=== PATIENT | female | born 2000 | race Caucasian/White ===

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

== ENCOUNTER 2020-04-28 14:58 | Observation (INO) ==
--- NOTE | 2020-04-28 15:32 | Emergency Department Note ---
History of Present Illness General Chief complaint: Mental Health Evaluation Stated complaint: OVERDOSE Time Seen by Provider: 04/28/20 15:20 Source: patient Mode of arrival: ambulatory Limitations: no limitations History of Present Illness Maximum Pain Intensity: 0 This patient comes in after taking an overdose. She says she did it because she did not want a live she admits to wanting to hurt herself and says this was a suicidal ideation. She does have a history of depression and overdose in the past. She said that she took 6 ibuprofen about 16 Effexor about 30 minutes prior to her be evaluating her. She did not take any aspirin or acetaminophen. Denies drugs and alcohol. She did not vomit. She has been feeling tired and has a minimal headache. Mild nausea but no chest pain or shortness of breath no known Covid exposure infectious had Covid already she tells me. She has had no particular stress. Home Medications Medication Instructions Recorded Confirmed Type norgestimate-ethinyl estradiol 1 tab PO DAILY 03/12/20 04/28/20 History [Previfem] venlafaxine 75 mg PO DAILY 03/12/20 04/28/20 History Allergies Allergy/AdvReac Type Severity Reaction Status Date / Time No Known Allergies Allergy Verified 04/28/20 18:15 Past Med/Surg History Medical History Depression Surgical History No pertinent past surgical history Family History (Updated 04/28/20 @ 18:36 by CESAR Lyons) Denies family history of Heart disease Social History Smoking Status: Never smoker Hx Alcohol Use: Yes Alcohol type: beer Hx Substance Use: No Preferred Language: Romanian Communication Ability: Effective 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 Review of Systems A total of 10 systems reviewed and were otherwise negative Physical Exam Vital Signs Vital Signs - 24 hr 04/28/20 15:12 04/28/20 15:48 04/28/20 16:03 Temperature 36.6 C Temperature Source Oral Pulse Rate 84 94 H 75 Respiratory Rate 16 16 16 Respiratory Effort / Characteristics Non-Labored Respiratory Depth Normal Blood Pressure 149/71 H 133/81 124/67 Blood Pressure Mean 97 86 86 Pulse Oximetry 98 96 95 Oxygen Delivery Method Sepsis Recent Fever Within 48 Hours No Sepsis New/Unexplained Change in Mental Status No Sepsis Action Taken by Nursing No Action Required 04/28/20 16:30 04/28/20 17:00 04/28/20 17:30 Temperature Temperature Source Pulse Rate 74 88 84 Respiratory Rate 23 20 20 Respiratory Effort / Characteristics Respiratory Depth Blood Pressure 115/72 130/82 124/73 Blood Pressure Mean 80 89 88 Pulse Oximetry 96 98 96 Oxygen Delivery Method Sepsis Recent Fever Within 48 Hours Sepsis New/Unexplained Change in Mental Status Sepsis Action Taken by Nursing 04/28/20 18:22 04/28/20 18:30 04/28/20 18:34 Temperature Temperature Source Pulse Rate 75 87 Respiratory Rate 19 20 Respiratory Effort / Characteristics Respiratory Depth Blood Pressure 112/58 L 113/65 Blood Pressure Mean 65 77 Pulse Oximetry 98 98 Oxygen Delivery Method Room Air Sepsis Recent Fever Within 48 Hours Sepsis New/Unexplained Change in Mental Status Sepsis Action Taken by Nursing General: Well developed well nourished young female who appears in no acute distress, breathing comfortably on room air. Normal speech HEENT: Normal cephalic atraumatic. Pupils are equal round and reactive to light. Extraocular movements are intact. Oropharynx is pink with moist mucous membranes. No swelling of the mouth lips or tongue. Neck: Supple with a midline trachea. No meningeal signs or stiffness, no JVD or bruits. No Stridor. Chest: Clear to auscultation bilaterally. No wheezes or rhonchi. No increased work of breathing. Heart: Regular rate and rhythm without murmurs or gallops. Abdomen: Soft nontender, nondistended without rebound guarding or rigidity. Extremities: No cyanosis clubbing or edema. No calf tenderness or assymetry Spine/Back. Non tender to palpation. No CVA tenderness Skin: Good turgor without rashes. Neurologic exam: Cranial nerves two through 12 are intact. Motor and sensation are intact and symmetrical throughout. Course Administered Medications Discontinued Medications Metoclopramide HCl (Metoclopramide Hcl Inj 5 Mg/Ml 2 Ml Vial) 10 mg IV NOW ONE Stop: 04/28/20 16:31 Last Admin: 04/28/20 16:32 Dose: 10 mg Documented by: [id number] Medical Decision Making Differential Diagnosis Overdose, arrhythmia, seizure, suicidal ideation, depression, electrolyte or metabolic abnormality, tox Medical Records Attestation: I reviewed the patient's medical records. Home Medications Current Medication List: was personally reviewed by me Laboratory Data Result diagrams: 04/28/20 15:48 04/28/20 15:48 Lab Results 04/28/20 04/28/20 04/28/20 Range/Units 15:48 15:48 15:48 WBC 9.58 (4.8-10.8) K/uL RBC 4.18 L (4.2-5.4) M/uL Hgb 12.8 (12.0-16.0) g/dL Hct 37.9 (37-47) % MCV 90.7 (80-100) fL MCH 30.6 (25-34) pg MCHC 33.8 (32-36) g/dL RDW Std Deviation 43.7 (36.4-46.3) fL RDW Coeff of Shailesh 13.2 (11.5-14.5) % Plt Count 301 (130-400) K/uL MPV 9.4 (7.4-10.4) fL Immature Gran % (Auto) 0.1 % Neut % (Auto) 74.0 % Lymph % (Auto) 18.9 % Winkler % (Auto) 5.0 % Eos % (Auto) 1.7 % Baso % (Auto) 0.3 % Neut # (Auto) 7.09 H (1.4-6.5) K/uL Lymph # (Auto) 1.81 (1.2-3.4) K/uL Winkler # (Auto) 0.48 (0.11-0.59) K/uL Eos # (Auto) 0.16 (0-0.5) K/uL Baso # (Auto) 0.03 (0-0.2) K/uL Immature Gran # (Auto) 0.01 (0.00-0.02) K/uL Sodium 141 (136-145) mmol/L Potassium 3.9 (3.5-5.1) mmol/L Chloride 110 H (98-107) mmol/L Carbon Dioxide 25 (21-32) mmol/L Anion Gap 6.0 (3-11) BUN 8 (7-18) mg/dl Creatinine 0.76 (0.6-1.2) mg/dl Est Cr Clr Drug Dosing 151.5 ml/min Est GFR ( Amer) 130.9 Est GFR (Non-Af Amer) 112.9 BUN/Creatinine Ratio 10.6 (10-20) Glucose 90 (70-99) mg/dl Calcium 9.0 (8.5-10.1) mg/dl Total Bilirubin 0.4 (0.2-1) mg/dl AST 13 L (15-37) U/L ALT 14 (12-78) U/L Alkaline Phosphatase 48 (45-117) U/L Total Protein 7.2 (6.4-8.2) gm/dl Albumin 3.5 (3.4-5.0) gm/dl Globulin 3.7 (2.5-4.0) gm/dl Albumin/Globulin Ratio 0.9 (0.9-2) HCG, Qual (Negative) Urine Color Urine Appearance (Clear) Urine pH (4.5-7.5) Ur Specific [employer] (1.000-1.030) Urine Protein (Negative) Urine Glucose (UA) (Negative) Urine Ketones (Negative) Urine Blood (Negative) Urine Nitrite (Negative) Urine Bilirubin (Negative) Urine Urobilinogen (Negative) Ur Leukocyte Esterase (Negative) Salicylates < 1.7 L (2.8-20) mg/dl Acetaminophen < 2 L (10-30) ug/ml Ethyl Alcohol mg/dL (0-3) mg/dl SARS-CoV-2 Ag (Rapid) (Negative) 04/28/20 04/28/20 04/28/20 Range/Units 15:48 15:48 18:02 WBC (4.8-10.8) K/uL RBC (4.2-5.4) M/uL Hgb (12.0-16.0) g/dL Hct (37-47) % MCV (80-100) fL MCH (25-34) pg MCHC (32-36) g/dL RDW Std Deviation (36.4-46.3) fL RDW Coeff of Shailesh (11.5-14.5) % Plt Count (130-400) K/uL MPV (7.4-10.4) fL Immature Gran % (Auto) % Neut % (Auto) % Lymph % (Auto) % Winkler % (Auto) % Eos % (Auto) % Baso % (Auto) % Neut # (Auto) (1.4-6.5) K/uL Lymph # (Auto) (1.2-3.4) K/uL Winkler # (Auto) (0.11-0.59) K/uL Eos # (Auto) (0-0.5) K/uL Baso # (Auto) (0-0.2) K/uL Immature Gran # (Auto) (0.00-0.02) K/uL Sodium (136-145) mmol/L Potassium (3.5-5.1) mmol/L Chloride (98-107) mmol/L Carbon Dioxide (21-32) mmol/L Anion Gap (3-11) BUN (7-18) mg/dl Creatinine (0.6-1.2) mg/dl Est Cr Clr Drug Dosing ml/min Est GFR ( Amer) Est GFR (Non-Af Amer) BUN/Creatinine Ratio (10-20) Glucose (70-99) mg/dl Calcium (8.5-10.1) mg/dl Total Bilirubin (0.2-1) mg/dl AST (15-37) U/L ALT (12-78) U/L Alkaline Phosphatase (45-117) U/L Total Protein (6.4-8.2) gm/dl Albumin (3.4-5.0) gm/dl Globulin (2.5-4.0) gm/dl Albumin/Globulin Ratio (0.9-2) HCG, Qual Negative (Negative) Urine Color Yellow Urine Appearance Clear (Clear) Urine pH 5.5 (4.5-7.5) Ur Specific [employer] 1.015 (1.000-1.030) Urine Protein Negative (Negative) Urine Glucose (UA) Negative (Negative) Urine Ketones Trace H (Negative) Urine Blood Negative (Negative) Urine Nitrite Negative (Negative) Urine Bilirubin Negative (Negative) Urine Urobilinogen Negative (Negative) Ur Leukocyte Esterase Negative (Negative) Salicylates (2.8-20) mg/dl Acetaminophen (10-30) ug/ml Ethyl Alcohol mg/dL < 3.0 (0-3) mg/dl SARS-CoV-2 Ag (Rapid) (Negative) 04/28/20 Range/Units Unknown WBC (4.8-10.8) K/uL RBC (4.2-5.4) M/uL Hgb (12.0-16.0) g/dL Hct (37-47) % MCV (80-100) fL MCH (25-34) pg MCHC (32-36) g/dL RDW Std Deviation (36.4-46.3) fL RDW Coeff of Shailesh (11.5-14.5) % Plt Count (130-400) K/uL MPV (7.4-10.4) fL Immature Gran % (Auto) % Neut % (Auto) % Lymph % (Auto) % Winkler % (Auto) % Eos % (Auto) % Baso % (Auto) % Neut # (Auto) (1.4-6.5) K/uL Lymph # (Auto) (1.2-3.4) K/uL Winkler # (Auto) (0.11-0.59) K/uL Eos # (Auto) (0-0.5) K/uL Baso # (Auto) (0-0.2) K/uL Immature Gran # (Auto) (0.00-0.02) K/uL Sodium (136-145) mmol/L Potassium (3.5-5.1) mmol/L Chloride (98-107) mmol/L Carbon Dioxide (21-32) mmol/L Anion Gap (3-11) BUN (7-18) mg/dl Creatinine (0.6-1.2) mg/dl Est Cr Clr Drug Dosing ml/min Est GFR ( Amer) Est GFR (Non-Af Amer) BUN/Creatinine Ratio (10-20) Glucose (70-99) mg/dl Calcium (8.5-10.1) mg/dl Total Bilirubin (0.2-1) mg/dl AST (15-37) U/L ALT (12-78) U/L Alkaline Phosphatase (45-117) U/L Total Protein (6.4-8.2) gm/dl Albumin (3.4-5.0) gm/dl Globulin (2.5-4.0) gm/dl Albumin/Globulin Ratio (0.9-2) HCG, Qual (Negative) Urine Color Urine Appearance (Clear) Urine pH (4.5-7.5) Ur Specific [employer] (1.000-1.030) Urine Protein (Negative) Urine Glucose (UA) (Negative) Urine Ketones (Negative) Urine Blood (Negative) Urine Nitrite (Negative) Urine Bilirubin (Negative) Urine Urobilinogen (Negative) Ur Leukocyte Esterase (Negative) Salicylates (2.8-20) mg/dl Acetaminophen (10-30) ug/ml Ethyl Alcohol mg/dL (0-3) mg/dl SARS-CoV-2 Ag (Rapid) Negative (Negative) Imaging Data Attestation: I personally reviewed and interpreted this imaging study as follows: ECG Data Attestation: I personally reviewed and interpreted this ECG as follows: MDM Narrative This patient comes in as described above. She took an overdose of Effexor and ibuprofen. She looks well and stable vital signs. IV access was established and she was hydrated with a 1 L IV normal saline bolus. 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 Given that that she took Effexor the concern will be for arrhythmia or seizures or serotonin and in light of this I did order seizure precautions as well. She did have an episode of emesis and was given Reglan as it is the least QT prolonging. On her EKG she has a normal QT and intervals. She was hydrated with IV normal saline. She has no acute anemia or electrolyte or metabolic abnormalities. She is not . She has nothing to suggest coi ngestions with alcohol salicylates or Tylenol. Given the fact that her Effexor is long-acting, I discussed this with her ED pharmacist and she needs to be monitored for a prolonged time at least 12 to 18 hours so we will admit her overnight to medicine for monitoring. She has remained stable is feeling better after given Reglan. I discussed it with the [facility] admission team. Impression & Plan Overdose, Depression, Suicidal behavior, Vomiting Discharge Plan Visit Data Chief Complaint: Mental Health Evaluation Stated Complaint: OVERDOSE ED Provider: Miguel Reeves Discharge Problem: Overdose, Depression, Suicidal behavior, Vomiting Discharge Instructions Interventions: ED Discharge Assessment Last Done: 04/28/20 18:34 Forms Stand Alone Forms: My [facility], Suicide Prevention Resources Prescriptions Prescriptions: No Action norgestimate-ethinyl estradiol [Previfem] 0.25-35 mg-mcg tablet 1 tab PO DAILY RF: 0 venlafaxine 75 mg capsule,extended release 24hr 75 mg PO DAILY RF: 0
[2020-04-28 16:02] LABS: Basophils # (auto) 0.03 K/uL (0-0.2); Basophils % (auto) 0.3 %; Eosinophils # (auto) 0.16 K/uL (0-0.5); Eosinophils % (auto) 1.7 %; Hematocrit (blood only) 37.9 % (37-47); Hemoglobin 12.8 g/dL (12.0-16.0); Immature Granulocytes # (auto) 0.01 K/uL (0.00-0.02); Immature Granulocytes % (auto) 0.1 %; Lymphocytes # (auto) 1.81 K/uL (1.2-3.4); Lymphocytes % (auto) 18.9 %; Mean Corpuscular Hemoglobin 30.6 pg (25-34); Mean Corpuscular Hgb Conc 33.8 g/dL (32-36); Mean Corpuscular Volume 90.7 fL (80-100); Mean Platelet Volume 9.4 fL (7.4-10.4); Monocytes # (auto) 0.48 K/uL (0.11-0.59); Neutrophils # (auto) 7.09 K/uL (1.4-6.5); Platelet Count 301 K/uL (130-400); RDW Coefficient of Variation 13.2 % (11.5-14.5); RDW Standard Deviation 43.7 fL (36.4-46.3); Red Blood Count 4.18 M/uL (4.2-5.4); White Blood Count 9.58 K/uL (4.8-10.8)
[2020-04-28 16:20] LABS: Pregnancy Test, Serum Negative (Negative)
[2020-04-28] MEDS ORDERED: METOCLOPRAMIDE HCL INJ 5 MG/ML 2 ML VIAL IV ONE (16:30)
[2020-04-28 16:37] LABS: Albumin Level 3.5 gm/dl (3.4-5.0); BUN Creatinine Ratio 10.6 (10-20); Creatinine Clr Calc Pharmacy 151.5 ml/min; Est GFR (African American) 130.9; Est GFR (Non-African American) 112.9; Potassium 3.9 mmol/L (3.5-5.1)
[2020-04-28 16:40] LABS: Albumin Globulin Ratio 0.9 (0.9-2); Bilirubin,Total 0.4 mg/dl (0.2-1); Globulin 3.7 gm/dl (2.5-4.0); Total Protein 7.2 gm/dl (6.4-8.2)
[2020-04-28 16:41] LABS: Acetaminophen < 2 ug/ml (10-30); Salicylate < 1.7 mg/dl (2.8-20)
[2020-04-28 18:21] LABS: Appearance Urine Clear (Clear); Bilirubin Urine Negative (Negative); Blood Urine Negative (Negative); Color Urine Yellow; Glucose Urine UA Negative (Negative); Ketones Urine Trace (Negative); Leukocyte Esterase Urine Negative (Negative); Nitrite Urine Negative (Negative); Protein Urine Negative (Negative); Specific Gravity Urine 1.015 (1.000-1.030); Urobilinogen Urine Negative (Negative); pH Urine 5.5 (4.5-7.5)
--- NOTE | 2020-04-28 18:29 | History & Physical Report ---
Date of Service April 28, 2020 Assessment & Plan (1) Overdose: -Admit to telemetry -Patient presenting from home after intentional overdose with 16 extended release Effexor and 6 ibuprofen -Hemodynamically stable, labs unremarkable -EKG demonstrates NSR with QTC 444, check serial EKG every 6 hours to monitor for QTC prolongation -Monitor closely for signs of serotonin syndrome -One-to-one observation, suicide precautions -Psychiatry consult (2) DVT prophylaxis: -SCDs, ambulate History of Present Illness Chief Complaint: Overdose Primary Care Provider: Shaylee Coleman MD 19-year-old female with H depression and other problems listed below who presents to the ED for evaluation after intentional overdose. Patient reports her mental health " has not been in a good place". She reports taking 16 extended release Effexor and 6 ibuprofen shortly before calling EMS and presenting to the ED. She reports that this was an intentional overdose in an attempt to harm herself. Patient reports she otherwise has been feeling well recently. No other recent illnesses, fevers, chills. Denies chest pain or shortness of breath. No lightheadedness, dizziness, diaphoresis, syncopal events. Has some nausea and vomiting upon arrival to the ED however that has since resolved. No abdominal pain or diarrhea. Denies bright red bleeding per rectum or dark tarry stools. No urinary symptoms. In the ED, patient is hemodynamically stable. Labs are unremarkable. EKG demonstrates NSR with QTC 444. Allergies Allergy/AdvReac Type Severity Reaction Status Date / Time No Known Allergies Allergy Verified 04/28/20 18:15 Home Medications Medication Instructions Recorded Confirmed Type norgestimate-ethinyl estradiol 1 tab PO DAILY 03/12/20 04/28/20 History [Previfem] venlafaxine 75 mg PO DAILY 03/12/20 04/28/20 History Past Med/Surg History Medical History Depression Surgical History No pertinent past surgical history Family History Denies family history of Heart disease Social History Smoking Status: Never smoker Hx Alcohol Use: Yes Alcohol type: beer Hx Substance Use: No Preferred Language: Vietnamese Communication Ability: Effective Back Tender Required: No Beliefs That Will Affect Care: None Current Living Situation: Family Feels Safe at Home: Yes Assistive Devices: None Review of Systems Review of Systems: ROS per HPI, all other systems reviewed and negative Physical Exam Physical Exam: Please refer to Dr. Montemayor's addendum for physical exam Results & Data Results & Data ([facility]) Vital Signs (Past 12 Hours) Vital Signs Temp Pulse Resp BP Pulse Ox 04/28/20 17:30 84 20 124/73 96 04/28/20 17:00 88 20 130/82 98 04/28/20 16:30 74 23 115/72 96 04/28/20 16:03 75 16 124/67 95 04/28/20 15:48 94 H 16 133/81 96 04/28/20 15:12 36.6 C 84 16 149/71 H 98 Laboratory Results Short CBC 04/28/20 Range/Units 15:48 WBC 9.58 (4.8-10.8) K/uL Hgb 12.8 (12.0-16.0) g/dL Hct 37.9 (37-47) % Plt Count 301 (130-400) K/uL BMP 04/28/20 15:48 Sodium 141 Potassium 3.9 Chloride 110 H Carbon Dioxide 25 BUN 8 Creatinine 0.76 Glucose 90 Calcium 9.0 Liver Function 04/28/20 Range/Units 15:48 Total Bilirubin 0.4 (0.2-1) mg/dl AST 13 L (15-37) U/L ALT 14 (12-78) U/L Alkaline Phosphatase 48 (45-117) U/L Albumin 3.5 (3.4-5.0) gm/dl Urine 04/28/20 Range/Units 18:02 Urine Color Yellow Urine Appearance Clear (Clear) Urine pH 5.5 (4.5-7.5) Ur Specific [place] 1.015 (1.000-1.030) Urine Protein Negative (Negative) Urine Glucose (UA) Negative (Negative) Code Status & VTE Plan VTE Prophylaxis Plan VTE Prophylaxis will be ordered: Yes Supervising Physician Co-Signing Physician Notes I saw this patient with the Nurse Practitioner, I participated in the history, physical, review of systems, and physical exam. I reviewed the medications with the patient and the Nurse Practitioner and helped reconcile the medications. I helped take a detailed family and social history as well. I formulated the assessment and plan personally with the Nurse Practitioner went over it with the patient. ROS-No Headache, No Visual Changes, No Nausea, No Vomiting, No Fever, No Chills, No Neck Pain or Stiffness, No Chest Pain, No Palpitations, No SOB, No BOOKER, No C ough, No Sputum, No Wheezing, No Abdominal Pain, No Diarrhea, No Hematemesis, No Hemoptysis, No Unexpected Weight Loss, No Flank pain, No Melena, No Hematochezia, No Frequency, No Urgency, No Burning, No Hematuria, No Rashes, No Diaphoresis. Appetite is Normal Physical Exam Gen-AAO x 3, NAD, Afebrile Head-NCAT, EOMI, PERRLA, Anicteric Sclera, No Posterior Pharyngeal Erythema Neck-Supple, No JVD, No Thyromegaly, No Masses, No LAD, No Bruits Lungs-Clear to Auscultation Bilaterally, No Rales, No Rhonchi, No Wheezing, No Crepitus Chest-No S4, +S1, +S2, No S3, No Murmurs, No Rubs, No Gallops, No Ectopy Abdomen-Soft, Bowel Sounds Present, Non Tender, Non Distended, No Hepatomegaly, No Splenomegaly, No Palpable Masses, No Rebound, No Rigidity, No Guarding Musculoskeletal-Full Range of Motion Bilaterally, No CVAT Extremities-No Cyanosis, No Clubbing, No Edema Nuero-Cranial Nerves II-XII grossly intact, Motor WNL, DTRs WNL, Strength WNL, Non Focal Psych-Normal Mood
[2020-04-28 19:14] LABS: Amphetamines+Metham, Urine Neg (Neg); Barbiturates, Urine Neg (Neg); Benzodiazepine, Urine Neg (Neg); Cocaine, Urine Neg (Neg); MDMA (Ecstacy), Urine Neg (Neg); Methadone, Urine Neg (Neg); Opiate, Urine Neg (Neg); Phencyclidine, Urine Neg (Neg)
[2020-04-28] MEDS ORDERED: ACETAMINOPHEN 325 MG TAB PO PRN (19:22)
--- NOTE | 2020-04-29 05:38 | Electrocardiogram Report ---
Test Reason : Blood Pressure : / mmHG Vent. Rate : 079 BPM Atrial Rate : 079 BPM P-R Int : 142 ms QRS Dur : 088 ms QT Int : 388 ms P-R-T Axes : 023 039 026 degrees QTc Int : 444 ms Normal sinus rhythm Normal ECG No previous ECGs available Confirmed by Yusef Lewis ([id number]) on 04/29/2020 5:38:10 AM Referred By: REFERRED SELF Confirmed By:Yusef Lewis
[2020-04-29] MEDS ORDERED: ACETAMINOPHEN 325 MG TAB PO PRN (07:18)
--- NOTE | 2020-04-29 08:07 | Hospitalist Progress Note ---
Date of Service April 29, 2020 Assessment & Plan (1) Intentional self-harm: -as per the ED notes on 04/28/2020 that "This patient comes in after taking an overdose. She says she did it because she did not want a live she admits to wanting to hurt herself and says this was a suicidal ideation. She does have a history of depression and overdose in the past. She said that she took 6 ibuprofen about 16 Effexor about 30 minutes prior to her be evaluating her. She did not take any aspirin or acetaminophen. Denies drugs and alcohol. She did not vomit. She has been feeling tired and has a minimal headache. Mild nausea but no chest pain or shortness of breath no known Covid exposure infectious had Covid already she tells me. She has had no particular stress." -by history, patient took around 16 extended release Effexor and 6 ibuprofen on 04/29/2020 which she attributes to her history of depression and thoughts of suicide. Patient denies mixing these medications with other drugs or with alcohol. Patient denies recreational drug use or tobacco use. on exam patient has multiple scars that are horizontal in length of left arm from history of self cutting behaviors (2) Depression: -Patient reports of history of depression and in the past has seen psychotherapists starting around age 15 and reports that she currently has outpatient appointment to see a therapist in [place] area -patient reports that as a college student in [place], she would follow student [facility] or [facility] urgent care center if acute medical issues -she reports her usual family physician in her hometown is Dr. Shaylee Coleman at [facility] [address] [place] [address] whom has been the prescribed of patients Effexor medications -patient will be assessed be behavior health while inpatient at [facility] while under current hospitalist medical service, patient currently under 1 to 1 observation and suicide precautions are in place -explained to patient of the 302 process when patients are evaluated for suicidal actions and currently awaiting further psychiatry/behavioral health consult recommendations (3) Overdose: -by history, patient took around 16 extended release Effexor and 6 ibuprofen on 04/29/2020 -her QTC intervals does not appear to be significantly affected at this time as the initial EKG was 444 then 456 then 464 and then 453 -currently as of 04/29/2020 AM, no acute events on telemetry, blood pressure stable, patient continues to be breathing normally on room air (4) History of 2019 novel coronavirus disease (COVID-19): -04/28/2020 COVID-19 screening test is negative -on hospitalist exam on 04/29/2020, patient reports that she "had COVID" over Thanksgi break. Patient denies any recent respiratory symptoms immediately prior to this admission. noted that her COVID-19 test is negative. a Chest X ray is ordered for baseline imaging of the lungs -patient does not appear to have need of any airborne or contact isolation as the reported COVID exposure was more than 2 weeks ago from initial hospital presentation on 04/28/2020 (5) DVT prophylaxis: -SCDs, ambulate Admission and Anticipated Discharge Date Admission Date: April 28, 2020 Subjective -currently as of 04/29/2020 AM, no acute events on telemetry, blood pressure stable, patient continues to be breathing normally on room air she denies further vomiting after 1 episode in the ED. No current nausea. She denies acute pain of chest or abdomen or anywhere of the body. No dizziness. No headache. No fevers. She denies any problems with bowel movements or urination. discussed her history of depression and other health history as documented in the assessment and plan -explained to patient of the 302 process when patients are evaluated for suicidal actions and currently awaiting further psychiatry/behavioral health consult recommendations Review of Systems Review of Systems: All systems reviewed & are unremarkable except as noted in Subjective Physical Exam Constitutional: cooperative and comfortable Eyes: PERRL, conjunctivae normal, anicteric sclerae EOM intact bilaterally ENMT: external ear and nose normal, oropharynx normal Neck: normal visual inspection Respiratory: normal respiratory effort, lungs clear to auscultation Cardiovascular: Rate/Rhythm: regular rate and regular rhythm Gastrointestinal (Abdomen): normal bowel sounds, soft, nontender, no hepatosplenomegaly Musculoskeletal: Head/Neck/Chest: normocephalic and head atraumatic Extremities: + elbow/forearm abnormality ( multiple scars that are horizontal in length of left arm) Left Neurologic: PERRL, EOMI, accommodation nl, no face palsy, no dysarthria CN's II-XI intact bilaterally Psychiatric: A+Ox3, euthymic affect Results & Data Results & Data ([facility]) Vital Signs (Past 12 Hours) Vital Signs Temp Pulse Pulse Resp BP Pulse Ox 04/29/20 03:30 36.9 C 74 18 106/67 96 04/28/20 23:07 36.7 C 96 H 18 125/81 95 04/28/20 20:33 36.8 C 78 16 121/75 97 04/28/20 20:05 77
--- NOTE | 2020-04-29 08:51 | XRay Report ---
XR chest 1V portable CLINICAL HISTORY: Respiratory symptoms. History of Covid positive test COMPARISON STUDY: 03/12/2020 FINDINGS: The cardiac and mediastinal contours are normal. There is no evidence of focal pulmonary co nsolidation. There is no evidence of failure. No pleural effusions are visualized.[Slightly prominent left basilar markings likely related to technical factors. IMPRESSION: No active disease in the chest. ACT 112: Negative or not required by law. Electronically signed by: Greg Ross M.D. 04/29/2020 8:50 AM
--- NOTE | 2020-04-29 12:25 | Psychiatric Consultation ---
Date of Consultation April 29, 2020 Impression / Recommendations Impression Dr. Tricia Rodriguez was directly involved in review and discussion of the patient's case and participated in medical decision making regarding treatment recommendations. RECOMMENDATIONS: 19-year-old female admitted medically on 04/28/2020 after a suicide attempt by intentional overdose of venlafaxine and ibuprofen. Pt was brought to the ED on a 302 warrant and had reportedly written several suicide notes. Psychiatric consultation requested by hospitalist service to evaluate patient s/p suicide attempt by intentional overdose of venlafaxine and ibuprofen. She admits to at least two previous suicide attempts by overdose in the past, both without any form of medical treatment. Pt is pleasant with conversation and is now reporting remorse and regretting her suicide attempt, denying present SI. She is reporting willingness for inpatient psychiatric treatment, at least at this time. Given the presence of the 302 warrant, patient should not be permitted to leave the hospital AMA. She did sign ROIs for her PCP and mother, will attempt to gather collateral information and coordinate care with her current prescribing physician. Inpatient psychiatric treatment is being recommended following medical clearance. (1) Overdose: 04/29 - Pt admits to ingesting ~16 tablets of 75mg venlafaxine ER as well as ~6 tablets of ibuprofen with the intent to end her life. She denies current physical concerns related to the ingestion. - At this time, patient is denying any symptoms consistent with serotonin toxicity. - Agree with holding venlafaxine until medically appropriate to resume - pt does feel the medication had been helpful overall and wishes to continue her previous dosing. It is recommended to resume the medication as soon as medically appropriate in order to reduce risk of symptoms of discontinuation syndrome. Pt was counseled on this and encouraged to alert staff if she experiences symptoms consistent with this. - Inpatient psychiatric treatment in being recommended after medical clearance - 302 warrant is present on chart, patient should not be permitted to leave the hospital AMA. Encounter type: initial encounter Injury intent: intentional self-harm Qualified Code(s): T50.902A - Poisoning by unspecified drugs, medicaments and biological substances, intentional self-harm, initial encounter (2) Depression: 04/29 - Reports history of diagnosis of depression and generalized anxiety. Pt states that she has suspected bipolar disorder in the past, but reports antidepressant medications "bring down the highs." - Further evaluation for possible bipolar mood presentation is deferred to accepting psychiatric facility. In the interim, patient can be resumed on her home medication regimen when felt to be medically appropriate given recent overdose. - Pt is denying current SI. - She reports having made appointments for outpatient therapy and psychiatric medication management, but is unsure what office these appointments are sche duled through. Depression Type: unspecified Qualified Code(s): F32.9 - Major depressive disorder, single episode, unspecified (3) Intentional self-harm: 04/29 - Pt reports history of SIB by cutting which began in 10/2019. Pt states she had gone several months without acting on SIB-urges, but did self harm recently on 04/25 and 04/28 but superficially cutting her left forearm. Risk Factors Assessment Male: No : Yes Do You Have Access To A Gun?: Yes (access to guns at her parents' house) Health Problems: No Mental Health Diagnoses: Yes Substance Use Disorders: Yes (chronic marijuana use) Previous Attempt: Yes Previous Attempt; Didn't Tell Anyone: Yes Family History of Suicide: No Previous Psychiatric Hospitalization: No Smoker: No Protective Factors Assessment Christian Beliefs: Yes : No Responsible for Young Children: No Employed: Yes Supportive Family: Yes Psych History Identifying Data 19-year-old female admitted medically on 04/28/2020 s/p suicide attempt by intentional overdose. Pt reportedly called 911 disclosing ingestion of #16 - 75mg venlafaxine ER and #6 ibuprofen tablets in an attempt to end her life. Psychiatric consultation was requested by our hospitalist service to evaluate patient s/p suicide attempt. Chief Complaint "Well, I have suffered with depression for the past 6 years. Depression and anxiety." History of Present Illness Maureen Henriquez is a 19-year-old female admitted medically on 04/28/2020 after presenting to the ED on a 302 warrant for intentional overdose as a suicide attempt. Documentation indicates the patient had called police to disclose intentional ingestion of #16 - 75mg venlafaxine ER and #6 tablets of ibuprofen. In addition, she had written 4 suicide notes. 302 warrant completed by police and reads: Martinez called and claimed that she had taken prescription pills (handful). Officers arrived and found Martinez outside her apartment crying. Martinez admitted to intentionally taking the meds to OD. I located joaniee notes to her family on her bed with instructions. Martinez stated she was very serious when she took the meds in an attempt to kill herself. Martinez said she hasnt been able to speak with anyone because of COVID. Pt is cooperative and pleasant during psychiatric assessment. She admits "I have suffered with depression for the past 6 years. Depression and anxiety." Pt states "last night was more than I could handle, I can't even think of why it was so hard." Pt states that she had been texting a friend both before and after she ingested venlafaxine and ibuprofen in a suicide attempt. Pt admits thoughts at the time of the ingestion were "well, I wanted to ." Pt states "then I got scared and my friend made me doubt that I wanted to . She started talking about my dogs and the ski trip we were taking and told me I needed to call 911 for help. I figured she was right, because I should have felt sure I wanted to ." Pt is denying continued SI and is now regretting her actions. Pt states "my family all came and showed me how much they care." Pt states that although there was not a significant stressor which acutely led to her suicide attempt, she has been able to identify several contributing fact ors: finals week, talking to her boyfriend about her past psychiatric history, fight with roommates, dreaming about killing herself, and applying to grad school. Pt states that the COVID-19 pandemic had been an ongoing stressor until she and her parents were diagnosed with the virus over and recovered without incident. Pt admits that her friend and her mother are very good supports. Pt reports a history of diagnoses of major depressive disorder and generalized anxiety disorder - antidepressants were prescribed by her PCP. She states that she had an aunt with bipolar disorder and "I am my aunt reincarnated." The patient states that her mother took her to a therapist at the age of [age] "to see if I had bipolar disorder, because I was up and down all the time." She reports that for several years she had noticed "going months feeling really depressed and then months feeling, well, happier than most people probably are." The patient states that these intervals have become significantly shorter, "now changing by the hour. I can be really elevated one hour, and then want to kill myself the next." Pt does endorse episodes of excessive spending in her elevated mood states - on clothing and "really expensive concert tickets." Interestingly, the patient states that there are many times that she will feel most depressed "when I'm around my friends and we are doing stuff together, like feeling alone with my friends." Pt states "if they talk to me directly about what we are doing or how I am feeling, then my mood seems to get better." Pt does admit to recent self-harm behavior beginning in October 2019. She reports these urges began around the same time that she was started on venlafaxine, though she was able to refrain from acting on urges from November to April of this year, stating her only recent episodes have been twice in the days prior to her admission. Pt states she had reached out to the [facility] for assistance 1-2 months ago and was given information for outpatient psychiatric providers. Pt states she made an intake appointment but is not sure which office this is through. Pt feels overall that she likes the venlafaxine, and is hoping to continue this medication. We did discuss risks associated with her overdose, as well as signs and symptoms of discontinuation syndrome. Pt was made aware of 302 warrant on her chart and is presently reporting willingness for inpatient psychiatric treatment. Psychiatric evaluation process was explained. Pt denied additional questions or concerns at this time. Past Psychiatric History Previous Psych History: Pt reports she was taken to a therapist at the age of 1 "to see if I had bipolar disorder, because I was up and down all the time." Pt states she had seen a therapist as a child, as onset of suicidal thoughts had occurred early in her childhood. Pt reports previous diagnoses of MDD and ALLEY, but a diagnosis of "generalized mood disorder" after meeting with a therapist, as "there was maybe a thought that I was bipolar." Current Psychiatric Diagnosis: Depression or "generalized mood disorder" Outpatient Services: - None presently - pt reports having made referrals recently for outpatient therapy and medication management - Antidepressants have been prescribed by her PCP Previous Psych Admissions: Denies Do You Have Access To A Gun?: Yes (access to guns at her parents' house) History of Previous Suicide Attempt: Yes Describe Attempts in the Past: both attempts by overdose. 2 and 3 years ago. Past Medication Trials: Per patient's report: 1. Zoloft - some noticeable elevation in mood 2. Lexapro - significant fatigue and weight gain/increased appetite 3. Buspirone 4. Effexor - onset of self-harm urges, but able to be managed Allergies Allergy/AdvReac Type Severity Reaction Status Date / Time No Known Allergies Allergy Verified 04/28/20 18:15 Home Medications Medication Instructions Recorded Confirmed Type norgestimate-ethinyl estradiol 1 tab PO DAILY 03/12/20 04/28/20 History [Previfem] venlafaxine 75 mg PO DAILY 03/12/20 04/28/20 History Family History Pt reports an aunt, uncle, and brother with depression. She states another aunt was diagnosed with bipolar disorder. The patient states alcoholism is prominent on her father's side. Denies known family history of suicide attempt or completion. Substance Abuse History Pt denies tobacco use. She reports rare/occasional alcohol use. Pt does endorse chronic marijuana use, 4-5x per week and feels it is helpful for her anxiety and depression. Pt denies regular use of or history of experimentation with other illicit substances. Personal History Living Arrangements: Apartment (with several roommates) Childhood: When not attending school, patient lives near [place] with her family. 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)) Marital Status: Single (has a boyfriend of 2 months; never previously ) Number Of Children: None Beliefs That Will Affect Care: Spiritual History of Legal Problems: Denied Psychological Trauma History Comment: Reporting "inferiority complex" as "my brothers were both really smart"; and emotional stress surrounding aunt "being critical about my weight." Patient History Medical History Depression Surgical History No pertinent past surgical history Family History Denies family history of Heart disease Social History Smoking Status: Never smoker Hx Alcohol Use: No Hx Substance Use: Yes Last Used Substance: Just Prior to Arrival Preferred Language: Central African Communication Ability: Effective 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 Pt is dressed in a hospital gown, adequate grooming is observed. Eye Contact: good eye contact Motor Behavior: no abnormal motor movements (observed while sitting cross-legged on bed) Speech: normal rate/rhythm/volume of speech Affect: euthymic affect; + mood not congruent with affect Mood: + depressed mood and + anxious mood Thought Process: goal directed thought process, clear/coherent thought process and thought association intact Thought Content: reality based without delusions; no hopelessness and no worthlessness Suicidal Thoughts: denies suicidal thoughts, denies suicidal plan and denies suicidal intent Homicidal Thoughts: denies homicidal thoughts Hallucinations: no auditory hallucinations and no visual hallucinations Cognition: recent memory grossly intact, attention grossly intact and language grossly intact Estimated Intelligence: consistent with education level Insight: + fair insight Judgement: + fair judgement Vital Signs (Past 24 Hours): Last Vital Signs Temp 37 C 04/29/20 12:10 Pulse 75 04/29/20 12:10 Resp 22 04/29/20 12:10 BP 117/77 04/29/20 12:10 Pulse Ox 96 04/29/20 12:10 Review of Systems Constitutional: denied HEENT: reports "phlegm" related to history of COVID-19 Cardiovascular: denies Respiratory: denied Gastrointestinal: reports frequent episodes of diarrhea Neurological: denied Musculoskeletal: reports chronic back pain Psychiatric: denies symptoms other than stated above Total of at least 10 systems reviewed, pertinent positives as above and in HPI. Results & Data (PSY) Medications Administered Miscellaneous (Previfem ~ Order Awaiting Action) 1 ea N/A QS FRAN Stop: 05/29/20 00:00 Last Admin: 04/29/20 08:40 Dose: Not Given Documented by: [id number] Admin: 04/29/20 00:06 Dose: Not Given Documented by: [id number] Coding Level of Care Code 31109 U Intl Hosp Care Lvl 3 Diagnoses Overdose T50.902A Encounter type: initial encounter Injury intent: intentional self-harm Depression F32.9 Depression Type: unspecified Intentional self-harm
--- NOTE | 2020-04-30 05:36 | Electrocardiogram Report ---
Test Reason : Blood Pressure : / mmHG Vent. Rate : 076 BPM Atrial Rate : 076 BPM P-R Int : 150 ms QRS Dur : 100 ms QT Int : 406 ms P-R-T Axes : 017 048 042 degrees QTc Int : 456 ms Normal sinus rhythm Normal ECG When compared with ECG of 28-APR-2020 16:01, No significant change was found Confirmed by Yusef Lewis ([id number]) on 04/30/2020 5:36:16 AM Referred By: REFERRED SELF Confirmed By:Yusef Lewis
--- NOTE | 2020-04-30 05:45 | Electrocardiogram Report ---
Test Reason : Blood Pressure : / mmHG Vent. Rate : 082 BPM Atrial Rate : 082 BPM P-R Int : 156 ms QRS Dur : 098 ms QT Int : 388 ms P-R-T Axes : 055 043 049 degrees QTc Int : 453 ms Normal sinus rhythm with sinus arrhythmia Nonspecific T wave abnormality When compared with ECG of 29-APR-2020 02:00, No significant change was found Confirmed by Yusef Lewis ([id number]) on 04/30/2020 5:45:21 AM Referred By: REFERRED SELF Confirmed By:Yusef Lewis
--- NOTE | 2020-04-30 05:56 | Electrocardiogram Report ---
Test Reason : Blood Pressure : / mmHG Vent. Rate : 076 BPM Atrial Rate : 076 BPM P-R Int : 144 ms QRS Dur : 100 ms QT Int : 378 ms P-R-T Axes : 043 063 061 degrees QTc Int : 425 ms Normal sinus rhythm Normal ECG When compared with ECG of 29-APR-2020 06:55, No significant change was found Confirmed by Yusef Lewis ([id number]) on 04/30/2020 5:56:12 AM Referred By: REFERRED SELF Confirmed By:Yusef Lewis
[2020-04-30] MEDS ORDERED: POLYETHYLENE (MIRALAX) 17 GM PACK PO PRN (09:51)
[2020-04-30 10:29] LABS: Basophils # (auto) 0.05 K/uL (0-0.2); Basophils % (auto) 0.7 %; Eosinophils # (auto) 0.21 K/uL (0-0.5); Eosinophils % (auto) 3.1 %; Hematocrit (blood only) 36.2 % (37-47); Hemoglobin 12.2 g/dL (12.0-16.0); Immature Granulocytes # (auto) 0.01 K/uL (0.00-0.02); Immature Granulocytes % (auto) 0.1 %; Lymphocytes # (auto) 2.39 K/uL (1.2-3.4); Lymphocytes % (auto) 35.4 %; Mean Corpuscular Hemoglobin 30.7 pg (25-34); Mean Corpuscular Hgb Conc 33.7 g/dL (32-36); Mean Platelet Volume 9.2 fL (7.4-10.4); Monocytes # (auto) 0.45 K/uL (0.11-0.59); Monocytes % (auto) 6.7 %; Neutrophils # (auto) 3.65 K/uL (1.4-6.5); Platelet Count 312 K/uL (130-400); RDW Standard Deviation 43.4 fL (36.4-46.3); Red Blood Count 3.98 M/uL (4.2-5.4); White Blood Count 6.76 K/uL (4.8-10.8)
[2020-04-30 10:56] LABS: Alanine Aminotransferase 17 U/L (12-78); Albumin Level 3.2 gm/dl (3.4-5.0); Aspartate Aminotransferase 16 U/L (15-37); BUN Creatinine Ratio 11.3 (10-20); Bilirubin Direct < 0.1 mg/dl (0-0.2); Blood Urea Nitrogen 10 mg/dl (7-18); Calcium 9.1 mg/dl (8.5-10.1); Carbon Dioxide 26 mmol/L (21-32); Chloride 109 mmol/L (98-107); Creatinine Clr Calc Pharmacy 125.4 ml/min; Est GFR (African American) 106.7; Glucose 91 mg/dl (70-99); Magnesium 2.2 mg/dl (1.8-2.4); Potassium 3.7 mmol/L (3.5-5.1); Sodium 141 mmol/L (136-145)
[2020-04-30 10:59] LABS: Alkaline Phosphatase 44 U/L (45-117); Bilirubin,Total 0.4 mg/dl (0.2-1); Total Protein 6.9 gm/dl (6.4-8.2)
--- NOTE | 2020-04-30 11:41 | Hospitalist Progress Note ---
Date of Service April 30, 2020 Assessment & Plan (1) Intentional self-harm: (2) Depression: (3) Overdose: clinically stable no prolongation of QTC observed renal and liver function, electrolytes stable no medical contraindication for transfer to patient counselled (4) History of 2019 novel coronavirus disease (COVID-19): -04/28/2020 COVID-19 screening test is negative - n0 fever, cough, poor appetite, etc. (5) DVT prophylaxis: -SCDs, ambulate transfer to today Admission and Anticipated Discharge Date Admission Date: April 28, 2020 Subjective ff up for effexor and ibuprofen overdose seen with BRIELLE Prakash at bedside throughout whole encounter sitting up in bed, comfortable, cheerful, cooperative states she feels much better overall denies headache, dizziness, chest pain, dyspnea, palpitations, nausea has mild abdominal pain, (+) constipation (+) flatus feels her depression and anxiety - "mild", but no suicidal ideations/plans denies any other symptoms states she is ready and would like to be discharged today Review of Systems Review of Systems: All systems reviewed & are unremarkable except as noted in Subjective Physical Exam Physical Exam: General- oriented x 3, not in distress, speaks in sentences with no effort or accessory muscle use Eyes- anicteric Neck- no JVD Lungs- clear breath sounds bilaterally, no rales/wheezes Heart- normal rate, regular rhythm; no murmurs Abdomen- normal bowel sounds, nondistended, soft, nontender Extremities- no pretibial edema, no calf tenderness Neuro- alert, oriented x 3; no gross focal neurologic deficits Skin- warm & dry Results & Data Results & Data ([facility]) Vital Signs (Past 12 Hours) Vital Signs Temp Pulse Pulse Resp BP BP Pulse Ox 04/30/20 08:00 85 04/30/20 06:50 36.8 C 80 18 114/79 95 04/30/20 03:24 36.8 C 76 18 128/84 97 Laboratory Results Laboratory Results - last 24 hr 04/30/20 04/30/20 10:14 10:14 WBC 6.76 RBC 3.98 L Hgb 12.2 Hct 36.2 L MCV 91.0 MCH 30.7 MCHC 33.7 RDW Std Deviation 43.4 RDW Coeff of Shailesh 13.0 Plt Count 312 MPV 9.2 Immature Gran % (Auto) 0.1 Neut % (Auto) 54.0 Lymph % (Auto) 35.4 [place] % (Auto) 6.7 Eos % (Auto) 3.1 Baso % (Auto) 0.7 Neut # (Auto) 3.65 Lymph # (Auto) 2.39 [place] # (Auto) 0.45 Eos # (Auto) 0.21 Baso # (Auto) 0.05 Immature Gran # (Auto) 0.01 Sodium 141 Potassium 3.7 Chloride 109 H Carbon Dioxide 26 Anion Gap 6.0 BUN 10 Creatinine 0.90 Est Cr Clr Drug Dosing 125.4 Est GFR ( Amer) 106.7 Est GFR (Non-Af Amer) 92.0 BUN/Creatinine Ratio 11.3 Glucose 91 Calcium 9.1 Magnesium 2.2 Total Bilirubin 0.4 Direct Bilirubin < 0.1 AST 16 ALT 17 Alkaline Phosphatase 44 L Total Protein 6.9 Albumin 3.2 L (1) Depression Depression Type: unspecified Qualified Code(s): F32.9 - Major depressive disorder, single episode, unspecified (2) Overdose Encounter type: initial encounter Injury intent: intentional self-harm Qualified Code(s): T50.902A - Poisoning by unspecified drugs, medicaments and biological substances, intentional self-harm, initial encounter
--- NOTE | 2020-04-30 22:17 | Electrocardiogram Report ---
Test Reason : Blood Pressure : / mmHG Vent. Rate : 071 BPM Atrial Rate : 071 BPM P-R Int : 152 ms QRS Dur : 096 ms QT Int : 388 ms P-R-T Axes : 033 058 056 degrees QTc Int : 421 ms Normal sinus rhythm Normal ECG When compared with ECG of 29-APR-2020 14:13, No significant change was found Confirmed by Yusef Lewis ([id number]) on 04/30/2020 10:16:41 PM Referred By: REFERRED SELF Confirmed By:Yusef Lewis
[2020-05-01 02:27] LABS: Marijuana Quant, GCMS Urine 30 ng/mL (<5)
--- NOTE | 2020-05-01 06:33 | Electrocardiogram Report ---
Test Reason : Blood Pressure : / mmHG Vent. Rate : 074 BPM Atrial Rate : 074 BPM P-R Int : 158 ms QRS Dur : 098 ms QT Int : 374 ms P-R-T Axes : 035 054 051 degrees QTc Int : 415 ms Normal sinus rhythm Normal ECG When compared with ECG of 29-APR-2020 19:34, No significant change was found Confirmed by Yuesf Lewis ([id number]) on 05/01/2020 6:33:40 AM Referred By: REFERRED SELF Confirmed By:Yusef Lewis
--- NOTE | 2020-05-19 10:52 | Discharge Summary ---
Date of Service April 30, 2020 Admission HPI Per Admitting Provider 19-year-old female with PMH depression and other problems listed below who presents to the ED for evaluation after intentional overdose. Patient reports her mental health " has not been in a good place". She reports taking 16 extended release Effexor and 6 ibuprofen shortly before calling EMS and presenting to the ED. She reports that this was an intentional overdose in an attempt to harm herself. Patient reports she otherwise has been feeling well recently. No other recent illnesses, fevers, chills. Denies chest pain or shortness of breath. No lightheadedness, dizziness, diaphoresis, syncopal events. Has some nausea and vomiting upon arrival to the ED however that has since resolved. No abdominal pain or diarrhea. Denies bright red bleeding per rectum or dark tarry stools. No urinary symptoms. In the ED, patient is hemodynamically stable. Labs are unremarkable. EKG demonstrates NSR with QTC 444. Principal Diagnosis Effexor and ibuprofen overdose, suicidal attempt Discharge Exam Gen-AAO x 3, NAD, Afebrile Head-NCAT, EOMI, PERRLA, Anicteric Sclera, No Posterior Pharyngeal Erythema Neck-Supple, No JVD, No Thyromegaly, No Masses, No LAD, No Bruits Lungs-Clear to Auscultation Bilaterally, No Rales, No Rhonchi, No Wheezing, No Crepitus Chest-No S4, +S1, +S2, No S3, No Murmurs, No Rubs, No Gallops, No Ectopy Abdomen-Soft, Bowel Sounds Present, Non Tender, Non Distended, No Hepatomegaly, No Splenomegaly, No Palpable Masses, No Rebound, No Rigidity, No Guarding Musculoskeletal-Full Range of Motion Bilaterally, No CVAT Extremities-No Cyanosis, No Clubbing, No Edema Nuero-Cranial Nerves II-XII grossly intact, Motor WNL, DTRs WNL, Strength WNL, Non Focal Psych-Normal Mood Discharge Data Allergies Allergy/AdvReac Type Severity Reaction Status Date / Time No Known Allergies Allergy Verified 04/28/20 18:15 Hospital Course (1) Drug overdose: (1) Intentional self-harm: (2) Depression: (3) Overdose: Admitted to medical service Given supportive care, monitored in telemetry unit Remained clinically stable no prolongation of QTC observed renal and liver function, electrolytes stable Psychiatry service consulted, transitioned to inpatient psychiatric care at patient counselled (4) History of 2019 novel coronavirus disease (COVID-19): -04/28/2020 COVID-19 screening test is negative - n0 fever, cough, poor appetite, etc. (5) DVT prophylaxis: -SCDs, ambulate Total Time Total Time Spent Total Time Spent (In Minutes): 40 minutes Discharge Plan Discharge Items Patient Disposition: Home - Self-Care Reason For Visit: MDD Discharge Diagnosis: - Depression, rule out other mood disorder Condition on Discharge: Fair Activity: Resume your previous activity Non-emergency contact: Primary Care Provider, Psychiatrist and Therapist Call non-emergency contact if: you have any medication questions and your symptoms worsen Follow-up/Referrals: Shaylee Coleman MD [Primary Care Provider] - Diet: Regular Addtl Attending Provider Instructions: SPECIAL CARE INSTRUCTIONS: 1. Follow through with your scheduled aftercare appointments. If unable to keep an appointment, please call to reschedule. 2. Take your medication only as prescribed. Medication should not be changed or stopped without the approval of your doctor. In the event of worsening symptoms or concerns about side effects, contact your doctor immediately. 3. Utilize new healthy coping skills, anger management skills, and stress management skills learned during your hospitalization. Journal feelings and process them with a support person. Identify stressors or situations that may result in relapse, deterioration or inappropriate behaviors and develop a plan to deal with those issues. 4. If your coping skills are ineffective and you are in crisis, contact your outpatient providers for direction. If unable to reach your providers, please call the [facility] CRISIS LINE AT , go to the [facility] walk-in center at [address], [address], [place], or go to the closest Emergency Room. 5. Avoid alcohol and un-prescribed drugs. 6. You have been provided with the Mental Health Advance Directives Pamphlet for your review. AFTERCARE APPOINTMENTS: * Please call your insurance company prior to your scheduled appointment to confirm your aftercare providers are covered. Take your insurance information to your appointments. WHO TO CALL AND WHEN: Medical Emergencies: For questions or emergencies related to your hospital stay, please contact the Inpatient Behavioral Health Unit at [phone]. A acidizer helper is on-call 06/12 for the Behavioral Health Unit for emergencies At any time you feel your situation is an emergency, you may also call 911 immediately. Pending Studies at Discharge: No Stand-Alone Forms: My [facility], Smoking Cessation Medications and DC Order Prescriptions: New lamotrigine [Lamictal] 25 mg Tablet 25 mg PO UD 30 Days Qty: 30 RF: 0 Continued norgestimate-ethinyl estradiol [Previfem] 0.25-35 mg-mcg tablet 1 tab PO DAILY RF: 0 venlafaxine [Effexor XR] 75 mg Capsule,Extended Release 24hr 75 mg PO DAILY RF: 0 Discharge Orders: Discharge Order (Routine); Ordered 05/04/20 Ordered By: Sonia Soni Admission Data Admit Date/Time: 04/30/20 13:25 Attending Provider: Tricia Rodriguez Admit Provider: Tricia Rodriguez Primary Care Provider: Shaylee Coleman Other Interventions: Discharge Summary Assessment (RN) Last Done: 05/04/20 10:38 PSY Interdisciplinary Discharge Planning Last Done: 05/04/20 10:38
== END 2020-04-30 13:19 | DRG 918 ==
LOC: ED 14:58 → 2S 17:24 → SUATTDRO 17:24 → INTOOBSV 17:24 → 2S 18:34

== ENCOUNTER 2020-04-30 13:25 | Inpatient (IN) ==
--- NOTE | 2020-04-30 13:49 | History & Physical ---
Date of Service April 30, 2020 Impression / Recommendations Impression 19-year-old female admitted voluntarily for inpatient psychiatric treatment on 04/30/2020 after a two day medical admission for suicide attempt by intentional overdose. Pt admitted to taking ~16 - 75mg venlafaxine and ~6 tablets of ibuprofen in an attempt to end her life. Pt admits to two previous suicide attempts by overdose within the last 3 years. Pt was seen on our consult service during her medical admission, and denied acute stressor prior to suicide attempt but was able to identify several underlying stressors over the course of the past few days/weeks. The patient indicated that she had been texting a friend prior to her overdose, and alerted her friend after the overdose as well. The friend encouraged the patient to call 911 herself, which led to her ED presentation. Pt initially had a 302 warrant completed by police, but ultimately agreed to voluntary admission. The patient reports historical diagnoses of major depressive disorder and generalized anxiety disorder; however, has contemplated whether she may have traits of bipolar disorder. Pt does indicate rapid fluctuation in mood and more impulsive spending in in her elevated mood states; however, patient states she is rarely in a consistent mood state for more than a full day, usually only a few hours. Will plan to gather collateral information from outpatient supports to further explore this diagnosis - differential currently includes: MDD, bipolar II disorder, cyclothymic disorder, substance-induced mood disorder, and personality disorder. As this information is being gathered, we will resume venlafaxine at 37.5mg to prevent discontinuation syndrome. During her admission, the patient will be encouraged to participate in group and recreational therapies. Staff will encouraged the development of healthy and effective coping strategies. Pt will be encouraged to consider a family meeting to involve outpatient supports in discharge and safety planning. Although she is presently denying acute suicidality, she remains at elevated risk of self harm if she is discharged prematurely without adequate psychiatric intervention following serious suicide attempt. Dr. Tricia Rodriguez was directly involved in review and discussion of the patient's case and participated in medical decision making regarding treatment recommendations. Risk Factors Assessment Do You Have Access To A Gun?: Yes (at parents' home) Psychiatric History Identifying Data GEOVANNA HENRIQUEZ is a 19-year-old F who currently lives in [place], [place] with her family - though attends [employer] during the semester. The patient reports a history of depression and anxiety, and was admitted on 04/30/20 13:25 on a 201 voluntary commitment following suicide attempt by polysubstance overdose. Chief Complaint "I am a little anxious. Just thinking about my friends and family. I feel bad that I put this burden on them." History of Present Illness Geovanna Henriquez is a 19-year-old female admitted voluntarily for inpatient psychiatric treatment after presenting to the ED via EMS s/p suicide attempt by polysubstance overdose. The patient was hospitalized for two days on the medical floor before being cleared for the inpatient psychiatric unit. She was ultimately admitted voluntarily for treatment. The patient was seen on our consult service on 04/29/2020. Documentation indicates the patient had called police to disclose intentional ingestion of #16 - 75mg venlafaxine ER and #6 tablets of ibuprofen. In addition, she had written 4 suicide notes. 302 warrant completed by police and reads: Martinez called and claimed that she had taken prescription pills (handful). Officers arrived and found Martinez outside her apartment crying. Martinez admitted to intentionally taking the meds to OD. I located mariselabye notes to her family on her bed with instructions. Martinez stated she was very serious when she took the meds in an attempt to kill herself. Martinez said she hasnt been able to speak with anyone because of COVID. Additional information from consultation included: Pt reports a history of diagnoses of major depressive disorder and generalized anxiety disorder - antidepressants were prescribed by her PCP. She states that she had an aunt with bipolar disorder and "I am my aunt reincarnated." The patient states that her mother took her to a therapist at the age of [age] "to see if I had bipolar disorder, because I was up and down all the time." She reports that for several years she had noticed "going months feeling really depressed and then months feeling, well, happier than most people probably are." The patient states that these intervals have become significantly shorter, "now changing by the hour. I can be really elevated one hour, and then want to kill myself the next." Pt does endorse episodes of excessive spending in her elevated mood states - on clothing and "really expensive concert tickets." Interestingly, the patient states that there are many times that she will feel most depressed "when I'm around my friends and we are doing stuff together, like feeling alone with my friends." Pt states "if they talk to me directly about what we are doing or how I am feeling, then my mood seems to get better." Pt does admit to recent self- harm behavior beginning in October 2019. She reports these urges began around the same time that she was started on venlafaxine, though she was able to refrain from acting on urges from November to April of this year, stating her only recent episodes have been twice in the days prior to her admission. Pt states she had reached out to the [facility] for assistance 1-2 months ago and was given information for outpatient psychiatric providers. Pt states she made an intake appointment but is not sure which office this is through. Pt feels overall that she likes the venlafaxine, and is hoping to continue this medication. We did discuss risks associated with her overdose, as well as signs and symptoms of discontinuation syndrome. Pt was seen today for psychiatric evaluation to follow-up on previous discussions and develop treatment plan. She was pleasant and cooperative with visit. Pt confirmed the above information regarding events contributing to her suicide attempt. She states "I knew my mood was not good already, and I had been working on a final that was due that night. I know like taking a walk or a shower helps, but I just thought if I took the time to do those things, I might fail my final...so I just wanted to give up on all of it." She denies SI presently. Pt is agreeable to discussing her mood fluctuations in more detail today. Pt states "it's so weird. 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 I'm like, 'I want to swim in a galvez' or 'I want to have a picnic in a field'." Pt states her elevated moods rarely last longer than a full day, but she experiences depressed moods for "anywhere from a few hours to sometimes a week." Pt reports recollection of depressed moods for the past 6 years, but states the elevated moods have been more noticeable only in the last 3 years. Pt denies history of elevated mood states that are more consistent with antidepressant medication initiation/adjustments, per recalled history. We did also discuss her chronic marijuana use and the role this may be having in her mood fluctuations. Pt is agreeable with resuming venlafaxine at 37.5mg to reduce risk of discontinuation syndrome while additional medication considerations are explored. She denies other significant concerns at this time. Past Psychiatric History Current Psychiatric Diagnosis: Major depressive disorder, generalized anxiety disorder Outpatient Services: - None presently - pt reports having made referrals recently for outpatient therapy and medication management - Antidepressants have been prescribed by her PCP Previous Psych Admissions: None Do You Have Access To A Gun?: Yes (at parents' home) History of Previous Suicide Attempt: Yes Describe Attempts in the Past: 2 suicide attempts by overdose Past Medication Trials: Per patient's report: 1. Zoloft - some noticeable elevation in mood 2. Lexapro - significant fatigue and weight gain/increased appetite 3. Buspirone 4. Effexor - onset of self-harm urges, but able to be managed Past Head Trauma/Neuro History History of Concussion/Seizure: No Allergies Allergy/AdvReac Type Severity Reaction Status Date / Time No Known Allergies Allergy Verified 04/28/20 18:15 Home Medications Medication Instructions Recorded Confirmed Type norgestimate-ethinyl estradiol 1 tab PO DAILY 03/12/20 04/28/20 History [Previfem] venlafaxine [Effexor XR] 75 mg PO DAILY 04/30/20 04/30/20 History Family History Family History of: Depression (aunt, uncle, and brother), Alcoholism/Drug Abuse (paternal side of family) and Bipolar (aunt) Alcohol History Hx of Alcohol Use Over the Past 12 Months: Yes Reports only rare/occasional alcohol use due to concerns of family history of alcoholism. Smoking Use Smoking Status: Never smoker Substance History Hx of Prescription Med Misuse Over the Past 12 Months: No Hx of Inhalent Misuse Over the Past 12 Months: No Hx of Organic Substance Use Over the Past 12 Months: Yes Hx of Illegal Substances/Street Drug Use Over Past 12 Months: No Personal History Living Arrangements: Home Living Arrangements Comments: Pt has an apartment off campus during the semester - lives with parents near [place] when class is not in session Highest Grade Completed: Some College Highest Grade Completed Comment: [employer] at [employer] - 3 majors (International Politics, Economics, and Studies) 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 Patient History Medical History Depression Surgical History No pertinent past surgical history Family History Denies family history of Heart disease Social History Smoking Status: Never smoker Hx Alcohol Use: No Hx Substance Use: Yes Last Used Substance: Just Prior to Arrival Preferred Language: Gambian Communication Ability: Effective Septic Tank Servicer Required: No Beliefs That Will Affect Care: Spiritual Current Living Situation: Other Current Living Situation Comment: 2 roommates Feels Safe at Home: Yes Assistive Devices: Contacts Review of Systems Review of Systems: Constitutional: denied Cardiovascular: denied Respiratory: denied Gastrointestinal: denied Neurological: denied Psychiatric: denies symptoms other than stated above Total of at least 10 systems reviewed, pertinent positives as above and in HPI. Physical Exam Psychiatric: Orientation: alert, oriented x 3 and cooperative (and pleasant) Apperance: appropriately dressed, appropriately groomed and appeared stated age Obese-appearing female seated on bed in no acute distress. Pt is casually dressed in pajama pants and a sweater. She is appropriately groomed, having recently showered. Eye Contact: good eye contact Motor Behavior: no abnormal motor movements (observed while seated on bed) Speech: normal rate/rhythm/volume of speech Affect: + blunted affect (somewhat timid, but is interactive and smiles appropriately) Mood: + anxious mood Thought Process: goal directed thought process, clear/coherent thought process and thought association intact Thought Content: reality based without delusions; no hopelessness and no worthlessness Suicidal Thoughts: denies suicidal thoughts and denies suicidal intent Homicidal Thoughts: denies homicidal thoughts Hallucinations: no auditory hallucinations and no visual hallu cinations Cognition: recent memory grossly intact, remote memory grossly intact, attention grossly intact and language grossly intact Estimated Intelligence: consistent with education level Insight: + fair insight Judgement: + fair judgement Vital Signs (Past 24 Hours): Last Vital Signs Temp 36.3 C L 04/30/20 13:27 Pulse 88 04/30/20 13:27 Resp 18 04/30/20 13:27 BP 100/68 04/30/20 13:27 Exam Statement: A physical exam was performed on the medical floor prior to admission to the unit by Dr. Sagar Conde MD. I accept that physical as correct/medical clearance for the inpatient physical exam.
[2020-04-30] MEDS ORDERED: ALUMINUM/MAGNESIUM SUSP 30 ML UDC PO PRN (13:52)
[2020-04-30] MEDS ORDERED: BISMUTH SUBSALICYLATE LIQD 236 ML PO PRN (13:52)
[2020-04-30] MEDS ORDERED: ACETAMINOPHEN 325 MG TAB PO PRN (13:52)
[2020-04-30] MEDS ORDERED: hydrOXYzine HCl 25 MG TAB PO PRN ×2 (13:52)
[2020-04-30] MEDS ORDERED: MAGNESIUM HYDROXIDE SUSP 30 ML UDC PO PRN (13:52)
[2020-04-30] MEDS ORDERED: SODIUM CHLORIDE 0.65% NA SOLN 45 ML (OCEAN) PRN (13:52)
[2020-04-30] MEDS: VENLAFAXINE HCL XR 37.5 MG CAPXR PO SCH (17:24)
--- NOTE | 2020-04-30 22:43 | Discharge Summary ---
Date of Service April 30, 2020 Admission HPI Per Admitting Provider 19-year-old female with PMH depression and other problems listed below who presents to the ED for evaluation after intentional overdose. Patient reports her mental health " has not been in a good place". She reports taking 16 extended release Effexor and 6 ibuprofen shortly before calling EMS and presenting to the ED. She reports that this was an intentional overdose in an attempt to harm herself. Patient reports she otherwise has been feeling well recently. No other recent illnesses, fevers, chills. Denies chest pain or shortness of breath. No lightheadedness, dizziness, diaphoresis, syncopal events. Has some nausea and vomiting upon arrival to the ED however that has since resolved. No abdominal pain or diarrhea. Denies bright red bleeding per rectum or dark tarry stools. No urinary symptoms. In the ED, patient is hemodynamically stable. Labs are unremarkable. EKG demonstrates NSR with QTC 444. Principal Diagnosis Effexor and ibuprofen overdose, suicidal attempt Discharge Exam Gen-AAO x 3, NAD, Afebrile Head-NCAT, EOMI, PERRLA, Anicteric Sclera, No Posterior Pharyngeal Erythema Neck-Supple, No JVD, No Thyromegaly, No Masses, No LAD, No Bruits Lungs-Clear to Auscultation Bilaterally, No Rales, No Rhonchi, No Wheezing, No Crepitus Chest-No S4, +S1, +S2, No S3, No Murmurs, No Rubs, No Gallops, No Ectopy Abdomen-Soft, Bowel Sounds Present, Non Tender, Non Distended, No Hepatomegaly, No Splenomegaly, No Palpable Masses, No Rebound, No Rigidity, No Guarding Musculoskeletal-Full Range of Motion Bilaterally, No CVAT Extremities-No Cyanosis, No Clubbing, No Edema Nuero-Cranial Nerves II-XII grossly intact, Motor WNL, DTRs WNL, Strength WNL, Non Focal Psych-Normal Mood Discharge Data Allergies Allergy/AdvReac Type Severity Reaction Status Date / Time No Known Allergies Allergy Verified 04/28/20 18:15 Hospital Course (1) Drug overdose: (1) Intentional self-harm: (2) Depression: (3) Overdose: Admitted to medical service Given supportive care, monitored in telemetry unit Remained clinically stable no prolongation of QTC observed renal and liver function, electrolytes stable Psychiatry service consulted, transitioned to inpatient psychiatric care at patient counselled (4) History of 2019 novel coronavirus disease (COVID-19): -04/28/2020 COVID-19 screening test is negative - n0 fever, cough, poor appetite, etc. (5) DVT prophylaxis: -SCDs, ambulate Total Time Total Time Spent Total Time Spent (In Minutes): 40 minutes Discharge Plan Discharge Items Patient Disposition: Home - Self-Care Reason For Visit: MDD Discharge Diagnosis: - Depression, rule out other mood disorder Condition on Discharge: Fair Activity: Resume your previous activity Non-emergency contact: Primary Care Provider, Psychiatrist and Therapist Call non-emergency contact if: you have any medication questions and your symptoms worsen Follow-up/Referrals: Shaylee Coleman MD [Primary Care Provider] - Diet: Regular Addtl Attending Provider Instructions: SPECIAL CARE INSTRUCTIONS: 1. Follow through with your scheduled aftercare appointments. If unable to keep an appointment, please call to reschedule. 2. Take your medication only as prescribed. Medication should not be changed or stopped without the approval of your doctor. In the event of worsening symptoms or concerns about side effects, contact your doctor immediately. 3. Utilize new healthy coping skills, anger management skills, and stress management skills learned during your hospitalization. Journal feelings and process them with a support person. Identify stressors or situations that may result in relapse, deterioration or inappropriate behaviors and develop a plan to deal with those issues. 4. If your coping skills are ineffective and you are in crisis, contact your outpatient providers for direction. If unable to reach your providers, please call the [facility] CRISIS LINE AT , go to the [facility] walk-in center at [address], [address], [place], or go to the closest Emergency Room. 5. Avoid alcohol and un-prescribed drugs. 6. You have been provided with the Mental Health Advance Directives Pamphlet for your review. AFTERCARE APPOINTMENTS: * Please call your insurance company prior to your scheduled appointment to confirm your aftercare providers are covered. Take your insurance information to your appointments. WHO TO CALL AND WHEN: Medical Emergencies: For questions or emergencies related to your hospital stay, please contact the Inpatient Behavioral Health Unit at [phone]. A form builder helper is on-call 06/12 for the Behavioral Health Unit for emergencies At any time you feel your situation is an emergency, you may also call 911 immediately. Pending Studies at Discharge: No Stand-Alone Forms: My [facility], Smoking Cessation Medications and DC Order Prescriptions: New lamotrigine [Lamictal] 25 mg Tablet 25 mg PO UD 30 Days Qty: 30 RF: 0 Continued norgestimate-ethinyl estradiol [Previfem] 0.25-35 mg-mcg tablet 1 tab PO DAILY RF: 0 venlafaxine [Effexor XR] 75 mg Capsule,Extended Release 24hr 75 mg PO DAILY RF: 0 Discharge Orders: Discharge Order (Routine); Ordered 05/04/20 Ordered By: Sonia Soni Admission Data Admit Date/Time: 04/30/20 13:25 Attending Provider: Tricia Rodriguez Admit Provider: Tricia Rodriguez Primary Care Provider: Shaylee Coleman Other Interventions: Discharge Summary Assessment (RN) Last Done: 05/04/20 10:38 PSY Interdisciplinary Discharge Planning Last Done: 05/04/20 10:38
--- NOTE | 2020-05-01 07:39 | Psychiatric Progress Note ---
Date of Service May 01, 2020 Impression / Recommendations Impression 19-year-old female admitted voluntarily for inpatient psychiatric treatment on 04/30/2020 after a two day medical admission for suicide attempt by intentional overdose on ~16 - 75mg venlafaxine and ~6 tablets of ibuprofen. She rpeorted two previous suicide attempts by overdose within the last 3 years. The patient reports historical diagnoses of major depressive disorder and generalized anxiety disorder; however, has contemplated whether she may have traits of bipolar disorder, as she reports rapid fluctuation in mood and more impulsive spending in in her elevated mood states, which last < 1 day. Will gather collateral information from outpatient supports to further explore this diagnosis - differential currently includes: MDD, bipolar II disorder, cyclothymic disorder, substance-induced mood disorder, and personality disorder. Venlafaxine XR 37.5mg has been resumed to prevent discontinuation syndrome. She remains at elevated risk of self harm if she is discharged prematurely without adequate psychiatric intervention following serious suicide attempt. (1) Overdose: 05/01 -monitored on the hospitalist service for 2 days, no QTC prolongation or other medical sequelae of overdose observed. -Continue to explore events/emotions that led up to her overdose, involve her in groups and therapy, work on healthy coping skills and discharge safety plan. -Family meeting with parents. (2) Depression: 05/01 -venlafaxine XR 37.5 mg [facility] Continue to gather information to clarify diagnosis, get collateral information from parents. -Patient would like to work on healthy coping skills to use in place of cannabis, as she feels she relies too much on it. -Refer for outpatient mental health treatment -has an appointment with someone on June 09 for psychiatric care, unsure who. Would also benefit from psychotherapy. Risk Factors Assessment Male: No : Yes Do You Have Access To A Gun?: Yes (at parents' home) Health Problems: No Mental Health Diagnoses: Yes Substance Use Disorders: No Previous Attempt: Yes Family History of Suicide: No Previous Psychiatric Hospitalization: No Hopelessness: No Smoker: No Protective Factors Assessment : No Responsible for Young Children: No Stable Relationships: Yes Supportive Family: Yes Interval History Identifying Information GEOVANNA STACY is a 19-year-old F who currently lives in [place], [place] with her family - though attends [employer] during the semester. The patient reports a history of depression and anxiety, and was admitted on 04/30/20 13:25 on a 201 voluntary commitment following suicide attempt by polysubstance overdose. Chief Complaint "Good". Review of Systems Sleep Information Total Hours of Sleep: 6 Meal Information Percent Meal Consumed - Dinner: 100 Subjective Subjective Patient was seen & assessed and interval progress reviewed with nursing and social work. Staff report the patient attended community meeting last evening and said she was anxious. On my assessment today, she states she slept "like a rock," and feels better today. She feels she is adjusting to the inpatient unit, and likes being able to get up and walk around, which she could not do on the medical floor. She states mood is improving, and denies suicidal thoughts. She wants to work on "coping mechanisms for when I get really upset," stating that she tends to "rely too much on marijuana, and I don't want to do that." She plans to go home to [facility] with parents after discharge, and will stay there for at least a month until the spring starts June 03. She is still unable to recall which outpatient clinic she is set up with to initiate care on June 09. She denies any side effects with resuming venlafaxine XR. Physical Exam Psychiatric Orientation: alert and cooperative Apperance: appropriately dressed, appropriately groomed and appeared stated age Seated on her bed in no acute distress, calm, cooperative, and pleasant. Eye Contact: good eye contact Motor Behavior: steady gait and station and no abnormal motor movements Speech: normal rate/rhythm/volume of speech Affect: euthymic affect and + anxious affect "Good." Thought Process: goal directed thought process Suicidal Thoughts: denies suicidal thoughts Homicidal Thoughts: denies homicidal thoughts Hallucinations: no auditory hallucinations Cognition: recent memory grossly intact, attention grossly intact and language grossly intact Estimated Intelligence: consistent with education level Insight: + fair insight Judgement: + fair judgement Vital Signs (Past 24 Hours) Last Vital Signs Temp 36.7 C 05/01/20 06:00 Pulse 103 H 05/01/20 06:00 Resp 18 05/01/20 06:00 BP 110/58 L 05/01/20 06:00 Results & Data ([facility]) Current Inpatient Medications Current Inpatient Medications: Current Inpatient Medications Acetaminophen (Acetaminophen 325 Mg Tab) 650 mg PO Q4H PRN PRN Reason: Headache or Minor Fever Stop: 05/30/20 13:51 Last Admin: 04/30/20 20:35 Dose: 650 mg Documented by: Al Hydrox/Mg Hydrox/Simethicone (Aluminum/Magnesium Susp 30 Ml Udc) 30 ml PO Q4H PRN PRN Reason: GI Upset Stop: 05/30/20 13:51 Bismuth Subsalicylate (Bismuth Subsalicylate Liqd 236 Ml) 15 ml PO PRN PRN PRN Reason: Loose Stool Stop: 05/30/20 13:51 Hydroxyzine HCl (Hydroxyzine Hcl 25 Mg Tab) 50 mg PO HSZ PRN PRN Reason: Insomnia Stop: 05/30/20 13:51 Hydroxyzine HCl (Hydroxyzine Hcl 25 Mg Tab) 25 mg PO Q4H PRN PRN Reason: Anxiety Stop: 05/30/20 13:51 Magnesium Hydroxide (Magnesium Hydroxide Susp 30 Ml Udc) 30 ml PO DAILY PRN PRN Reason: Constipation Stop: 05/30/20 13:51 Previfem 0.25/0.035 Mg- Non-Formulary Patient's Own Med 1 ea N/A QAM [facility] Stop: 05/31/20 08:59 Sodium Chloride (Sodium Chloride 0.65% Na Soln 45 Ml ([place])) 1 - 2 sprays NA PRN PRN PRN Reason: Nasal Dryness/Congestion Stop: 05/30/20 13:51 Venlafaxine HCl (Venlafaxine Hcl Xr 37.5 Mg Capxr) 37.5 mg PO QAM [facility] Stop: 05/30/20 16:14 Last Admin: 04/30/20 17:24 Dose: 37.5 mg Documented by: Post Discharge Appointments Primary Care Physician Name Of Family Doctor: Dr Shaylee [facility] (1) Depression Depression Type: unspecified Qualified Code(s): F32.9 - Major depressive disorder, single episode, unspecified (2) Overdose Encounter type: initial encounter Injury intent: intentional self-harm Qualified Code(s): T50.902A - Poisoning by unspecified drugs, medicaments and biological substances, intentional self-harm, initial encounter
[2020-05-01] MEDS: ETHINYL ESTRADIOL SCH (08:23)
[2020-05-01] MEDS: NORGESTIMATE SCH (08:23)
[2020-05-01] MEDS: VENLAFAXINE HCL XR 37.5 MG CAPXR PO SCH (08:23)
[2020-05-02] MEDS: ETHINYL ESTRADIOL SCH (10:01)
[2020-05-02] MEDS: NORGESTIMATE SCH (10:01)
[2020-05-02] MEDS: VENLAFAXINE HCL XR 37.5 MG CAPXR PO SCH (10:01)
[2020-05-02] MEDS ORDERED: lamoTRIgine 25 MG TAB PO ONE (11:35)
--- NOTE | 2020-05-02 12:00 | Psychiatric Progress Note ---
Date of Service May 02, 2020 Impression / Recommendations Impression 19-year-old female admitted voluntarily for inpatient psychiatric treatment on 04/30/2020 after a two day medical admission for suicide attempt by intentional overdose on ~16 - 75mg venlafaxine and ~6 tablets of ibuprofen. She rpeorted two previous suicide attempts by overdose within the last 3 years. The patient reports historical diagnoses of major depressive disorder and generalized anxiety disorder; however, has contemplated whether she may have traits of bipolar disorder, as she reports rapid fluctuation in mood and more impulsive spending in in her elevated mood states, which last < 1 day. Will gather collateral information from outpatient supports to further explore this diagnosis - differential currently includes: MDD, bipolar II disorder, cyclothymic disorder, substance-induced mood disorder, and personality disorder. Venlafaxine XR 37.5mg has been resumed to prevent discontinuation syndrome. She remains at elevated risk of self harm if she is discharged prematurely without adequate psychiatric intervention following serious suicide attempt. 05/02/2020 update: The patient clearly describes difficulty regulating her mood. She describes a past history of what would be referred to as an expansive mood or even nondelusional grandiosity. However, this does not seem to be accompanied by episodes of increased energy, decreased desire for sleep, impulsive behaviors that cannot otherwise be explained, flight of ideas or feedback to suggest that she is having pressured speech. Also, the patient describes a longstanding history of intentional self-injurious behaviors as a way of relieving feelings of loneliness or inadequacy or stress. There is a history of bipolar disorder in the family (2 aunts) but I do not feel the patient meets criteria for bipolar 2 disorder or cyclothymic disorder, although this should remain in the differential. Her prominent complaints are of recurring depression cycling with what she refers to as "normal" moods, difficulty regulating her mood under feelings of abandonment, distress, or other "triggers." Based on the additional information provided by the patient at this point it may be best to resume the dose of venlafaxine at 75 mg daily and, in addition, add lamotrigine as a mood stabilizer. (1) Overdose: 05/01 -monitored on the hospitalist service for 2 days, no QTC prolongation or other medical sequelae of overdose observed. -Continue to explore events/emotions that led up to her overdose, involve her in groups and therapy, work on healthy coping skills and discharge safety plan. -Family meeting with parents. 05/02 -The patient reports that she has not had any thoughts of suicide on the unit, nor has she had any thoughts of furtherance since her admission to the medical floor. However, which she describes as a longstanding history of suicidality that develops precipitously under stress, within the context of a lifelong difficulty regulating her mood. She has insight into this, and notes that she is generally able to "talk [herself] down," or engage in coping strategies/self soothing activities that allow the suicidal impulses to pass without action. She does, however, acknowledge that she has made at least 3 suicide attempts by overdose over the years, and that this is the first attempt that actually came to medical attention. In the other 2 instances she re gurgitated the pills that she had taken, monitor herself, and did not tell anyone. -Her goal is to improve mood stabilization and to reinforce the patient's coping strategies. She identifies using marijuana as one of her coping strategies, and we are educating the patient that this is not a recommended coping strategy within the context of her report of impulsive self harmful behaviors. (2) Depression: 05/01 -venlafaxine XR 37.5 mg resumed on transfer to the [facility]. Continue to gather information to clarify diagnosis, get collateral information from [facility]. -Patient would like to work on healthy coping skills to use in place of cannabis, as she feels she relies too much on it. -Refer for outpatient mental health treatment -has an appointment with someone on June 09 for psychiatric care, unsure who. Would also benefit from psychotherapy. 05/02 -The patient today reports that she does feel that venlafaxine extended release helps at 75 mg a day. A cyclical mood disorder, such as bipolar 2 or cyclothymic disorder has been in the differential diagnosis. However, the patient self identifies depression and anxiety as being her primary target symptoms, and although there is some evidence of nondelusional grandiosity in the past, she does not meet criteria for panfilo or hypomania, at least based on the clinical data provided. Accordingly, her dose of venlafaxine extended release has been titrated back to 75 mg daily, beginning tomorrow. -The patient's difficulty regulating mood is well-established. His mood regulation difficulties seems to be entirely, or almost entirely situation- dependent, and the triggers for episodes of despair and severe anxiety are described by the patient as being largely related to themes of abandonment, rejection, inadequacy, or high expressed emotions. We are offering the patient a trial of lamotrigine. We will begin at 25 mg today as a test dose, and as tolerated we will continue the dose at 25 mg a day with a plan to titrate (presumably on an outpatient basis). Material risks of lamotrigine, including but not limited to the risk of Thornton-Ab syndrome were reviewed with the patient. She was advised to monitor her body for the development of any rash, and in particular to be aware of a rash that begins to spread. The patient was also advised that any rash should be promptly reported to her prescribing provider and lamotrigine should be stopped immediately if the rash appears to be prominent, spreading or otherwise worsening. The patient indicated understanding. Risk Factors Assessment Male: No : Yes Do You Have Access To A Gun?: Yes (at parents' home) Health Problems: No Mental Health Diagnoses: Yes Substance Use Disorders: No Previous Attempt: Yes Family History of Suicide: No Previous Psychiatric Hospitalization: No Hopelessness: No Smoker: No Protective Factors Assessment : No Responsible for Young Children: No Stable Relationships: Yes Supportive Family: Yes Interval History Identifying Information GEOVANNA HENRIQUEZ is a 19-year-old F who currently lives in [place], [place] with her family - though attends [employer] during the semester. The patient reports a history of depression and anxiety, and was admitted on 04/30/20 13:25 on a 201 voluntary commitment following suicide attempt by polysubstance overdose. Chief Complaint Depression and anxiety."". Review of Systems Sleep Information Total Hours of Sleep: 6.5 Meal Information Percent Meal Consumed - Breakfast: 30 Percent Meal Consumed - Lunch: 95 Percent Meal Consumed - Dinner: 100 Subjective Subjective Patient was seen & assessed and interval progress reviewed with treatment team. I met with her individually in order to assess her current mental status, evaluate her response to treatment, make any necessary changes in the patient's treatment regimen and coordination with the patient; address issues, questions and concerns that may arise. The patient began by describing the circumstances that had led to the admission. She tells me that she has a longstanding history, beginning in childhood, of responding to emotional triggers or stress by isolating and contemplating suicide. The patient notes that she began this behavior as a young child and, at the time, just assumed that contemplating suicide was a typical and normal reaction to stress. She notes that, for example, when one of her brothers would become upset and go to their bedrooms she would worry that they would commit suicide because she assumed that their response to emotional distress was to consider and possibly complete suicide. The patient explains that she thinks about suicide often, but always within the context of some disappointment or stressor. In this case, there were several identified triggers. As described by the patient, these included the fact that she had had an argument with her 2 roommates upon returning to [place] and the apartment that they share after approximately 2 weeks of self quarantining and recovery from a diagnosis of COVID-19 that have been made at [facility] (the patient states: "My entire family got COVID-19 at [facility]. I recovered, was cleared medically, but when I returned to the apartment my 2 roommates were very upset, accused me of putting my own needs in front of their safety. So we had a huge argument.") Evidently both roommates moved out, temporarily, and the patient was struggling with how to resolve the heart feelings that developed subsequent to the above-referenced argument. Also, the patient reports that she has a new boyfriend and there have been some adjustment difficulties. On the day in question, the patient was facing a deadline for a paper that was due on midnight. She was feeling depressed and anxious and was having trouble completing the assignment and was worried that she would missed the deadline. The patient notes that, as described above, under the above stress she began to think of suicide. She engaged in various coping mechanisms that she has learned to mitigate the accompanying suicidal thoughts, such as taking a shower, taking a walk, and talking to a friend. She notes that she told a friend that she was really struggling with depression. The patient notes that none of these coping mechanisms was effective and that she felt her depression take a rapid downhill spiral. She contemplated additional coping strategies but, among these, was simply to take an overdose and complete suicide so that "[she] would not have to deal with all the problems that I have, ever again." Ms. 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 She also notes that she has a fairly good support system, including friends and a close relationship with both parents, but particularly her mother. She is also close with her brother. The patient emphasizes that her depression comes in waves, and she often feels fine unless she finds her self in a stressful or distressing situation. We talked about cyclothymia and bipolar disorders. The patient notes that 2 of her aunts are diagnosed with bipolar disorder. The patient also notes that there are periods on her life when her mood has become expansive. She states that, for example, she not only thinks about the possibility of her becoming sap basis architect, there are times in her life when she feels that it is her lucia to become the [place] president. The patient also describes a history of incautious sexual activities, but she feels that these are more likely to occur when she is feeling lonely or unloved. Further, the patient acknowledged that there is a history of intentional self-injurious behaviors, usually with a razor blade, and she superficially cuts the fleshy portions of her forearm. During most of today's encounter we discussed her difficulty regulating her mood in response to stress. She notes that today, and ever since she arrived on the behavioral health unit she has been feeling much better and has not had any thoughts of suicide. However, she also acknowledges that given her demonstrated difficulty tolerating stress she may remain at risk. There is a history of 2 previous suicide attempts, neither of which came to medical attention (both by overdoses). In this case, the patient said that she decided to seek help because she realized that she did not really want to . Also of note is the fact the patient reports that she regularly uses "a bowl" of marijuana as a "coping mechanism." Physical Exam Psychiatric Orientation: alert, oriented x 3 and cooperative Apperance: appropriately dressed, appropriately groomed and appeared stated age Eye Contact: good eye contact Motor Behavior: steady gait and station Speech: + pressured speech Affect: euthymic affect The patient smiles and even laughs appropriately several times during the encounter. In general, her affect might be described as "bright." The patient describes her mood today is "normal" and "good, actually." She does acknowledge feeling slightly anxious Thought Process: goal directed thought process, linear/logical thought process and clear/coherent thought process Thought Content: reality based without delusions Suicidal Thoughts: denies suicidal thoughts Homicidal Thoughts: denies homicidal thoughts Hallucinations: no auditory hallucinations and no visual hallucinations Cognition: recent memory grossly intact, remote memory grossly intact and language grossly intact Estimated Intelligence: + above average estimated intelligence Insight: good insight Judgement: good judgement The patient recognizes that taking the overdose was an example of very poor judgment. However, she does fully recognize this fact and demonstrates a decided commitment to actively pursuing treatment. Vital Signs (Past 24 Hours) Last Vital Signs Temp 36.6 C 05/02/20 06:31 Pulse 87 05/02/20 06:31 Resp 18 05/02/20 06:31 BP 119/84 05/02/20 06:31 Results & Data ([facility]) Current Inpatient Medications Current Inpatient Medications: Current Inpatient Medications Acetaminophen (Acetaminophen 325 Mg Tab) 650 mg PO Q4H PRN PRN Reason: Headache or Minor Fever Stop: 05/30/20 13:51 Last Admin: 04/30/20 20:35 Dose: 650 mg Documented by: Al Hydrox/Mg Hydrox/Simethicone (Aluminum/Magnesium Susp 30 Ml Udc) 30 ml PO Q4H PRN PRN Reason: GI Upset Stop: 05/30/20 13:51 Bismuth Subsalicylate (Bismuth Subsalicylate Liqd 236 Ml) 15 ml PO PRN PRN PRN Reason: Loose Stool Stop: 05/30/20 13:51 Hydroxyzine HCl (Hydroxyzine Hcl 25 Mg Tab) 50 mg PO HSZ PRN PRN Reason: Insomnia Stop: 05/30/20 13:51 Hydroxyzine HCl (Hydroxyzine Hcl 25 Mg Tab) 25 mg PO Q4H PRN PRN Reason: Anxiety Stop: 05/30/20 13:51 Lamotrigine (Lamotrigine 25 Mg Tab) 25 mg PO NOW ONE Stop: 05/02/20 11:36 Magnesium Hydroxide (Magnesium Hydroxide Susp 30 Ml Udc) 30 ml PO DAILY PRN PRN Reason: Constipation Stop: 05/30/20 13:51 Previfem 0.25/0.035 Mg- Non-Formulary Patient's Own Med 1 ea N/A QAM [facility] Stop: 05/31/20 08:59 Last Admin: 05/02/20 10:01 Dose: 1 tab Documented by: Sodium Chloride (Sodium Chloride 0.65% Na Soln 45 Ml ([place])) 1 - 2 sprays NA PRN PRN PRN Reason: Nasal Dryness/Congestion Stop: 05/30/20 13:51 Venlafaxine HCl (Venlafaxine Hcl Xr 75 Mg Capxr) 75 mg PO QAM [facility] Stop: 06/02/20 08:59 Mental Health & Subst Abuse Tx Psychiatrist Name of Psychiatrist: Savannah Nevarez PA-C Psychiatrist's Date of Appointment with Psychiatrist: 06/09/19 Time of Appointment with Psychiatrist: 1:30pm Psychiatric Appointment Comment: [id number], (in person appt) Therapist Name of Therapist: [facility] The[facility]ist's Post Discharge Appointments Primary Care Physician Name Of Family Doctor: Ferdinand Pradhan Office in [place] [facility] Contact Information Discharge Discharge [address]: [address] [place] [address] (1) Depression Depression Type: unspecified Qualified Code(s): F32.9 - Major depressive disorder, single episode, unspecified (2) Overdose Encounter type: initial encounter Injury intent: intentional self-harm Qualified Code(s): T50.902A - Poisoning by unspecified drugs, medicaments and biological substances, intentional self-harm, initial encounter
--- NOTE | 2020-05-03 09:00 | Psychiatric Progress Note ---
Date of Service May 03, 2020 Impression / Recommendations Impression 19-year-old female admitted voluntarily for inpatient psychiatric treatment on 04/30/2020 after a two day medical admission for suicide attempt by intentional overdose on ~16 - 75mg venlafaxine and ~6 tablets of ibuprofen. She rpeorted two previous suicide attempts by overdose within the last 3 years. The patient reports historical diagnoses of major depressive disorder and generalized anxiety disorder; however, has contemplated whether she may have traits of bipolar disorder, as she reports rapid fluctuation in mood and more impulsive spending in in her elevated mood states, which last < 1 day. Will gather collateral information from outpatient supports to further explore this diagnosis - differential currently includes: MDD, bipolar II disorder, cyclothymic disorder, substance-induced mood disorder, and personality disorder. Venlafaxine XR 37.5mg has been resumed to prevent discontinuation syndrome. After obtaining additional information, the patinet is demonstrating difficulty regulating mood with episodes of expansive mood and even nondelusional grandiosity; however, this is not always associated with flight of ideas, decreased sleep or increased energy. She also reports a long-standing history of SIB. Although reported symptoms continue to be sub-clinical for a diagnosis of bipolar II or cyclothymic disorder, the difficulty regulating mood and poor impulse control have led to discussion of initiating lamotrigine as a mood stabilizer. Risks and benefits discussed (specifically risk of SJS and HLH), and patient agreed to the medication. Although she is appearing bright on our unit, she admits that many of these concerns have not previously been addressed and she feels she is benefitting from treatment. She remains at elevated risk of self harm if she is discharged prematurely without adequate psychiatric intervention following serious suicide attempt. (1) Overdose: 05/01 -monitored on the hospitalist service for 2 days, no QTC prolongation or other medical sequelae of overdose observed. -Continue to explore events/emotions that led up to her overdose, involve her in groups and therapy, work on healthy coping skills and discharge safety plan. -Family meeting with parents. 05/02 -The patient reports that she has not had any thoughts of suicide on the unit, nor has she had any thoughts of furtherance since her admission to the medical floor. However, which she describes as a longstanding history of suicidality that develops precipitously under stress, within the context of a lifelong difficulty regulating her mood. She has insight into this, and notes that she is generally able to "talk [herself] down," or engage in coping strategies/self soothing activities that allow the suicidal impulses to pass wit hout action. She does, however, acknowledge that she has made at least 3 suicide attempts by overdose over the years, and that this is the first attempt that actually came to medical attention. In the other 2 instances she regurgitated the pills that she had taken, monitor herself, and did not tell anyone. -Her goal is to improve mood stabilization and to reinforce the patient's coping strategies. She identifies using marijuana as one of her coping strategies, and we are educating the patient that this is not a recommended coping strategy within the context of her report of impulsive self harmful behaviors. 05/03 - Pt continues to deny SI - Continue to encourage development of safety plan and healthy coping strategies. (2) Depression: 05/01 -venlafaxine XR 37.5 mg resumed on transfer to the [facility]. Continue to gather information to clarify diagnosis, get collateral information from parents. -Patient would like to work on healthy coping skills to use in place of cannabis, as she feels she relies too much on it. -Refer for outpatient mental health treatment -has an appointment with someone on June 09 for psychiatric care, unsure who. Would also benefit from psychotherapy. 05/02 -The patient today reports that she does feel that venlafaxine extended release helps at 75 mg a day. A cyclical mood disorder, such as bipolar 2 or cyclothymic disorder has been in the differential diagnosis. However, the patient self identifies depression and anxiety as being her primary target symptoms, and although there is some evidence of nondelusional grandiosity in the past, she does not meet criteria for panfilo or hypomania, at least based on the clinical data provided. Accordingly, her dose of venlafaxine extended release has been titrated back to 75 mg daily, beginning tomorrow. -The patient's difficulty regulating mood is well-established. His mood regulation difficulties seems to be entirely, or almost entirely situation-de pendent, and the triggers for episodes of despair and severe anxiety are described by the patient as being largely related to themes of abandonment, rejection, inadequacy, or high expressed emotions. We are offering the patient a trial of lamotrigine. We will begin at 25 mg today as a test dose, and as tolerated we will continue the dose at 25 mg a day with a plan to titrate (presumably on an outpatient basis). Material risks of lamotrigine, including but not limited to the risk of Thornton-Ab syndrome were reviewed with the patient. She was advised to monitor her body for the development of any rash, and in particular to be aware of a rash that begins to spread. The patient was also advised that any rash should be promptly reported to her prescribing provider and lamotrigine should be stopped immediately if the rash appears to be prominent, spreading or otherwise worsening. The patient indicated understanding. 05/03 - Continue current medication regimen - pt is tolerating titration of venlafaxine and initiation of lamotrigine without reported side effects. - She had a meeting with her parents yesterday via phone. Family supportive, but obviously concerned about the patient's behavior. - Pt does reports significant anxiety related to discharge, as she is scheduled for a final on Tuesday - a similar situation to the events that triggered suicidality and led to overdose. Pt was given recommendations regarding ways to begin planning for this event in order to predict stressors and include coping strategies that will allow her to be as successful as possible with her exam - possibility even including supports in this plan if felt to be beneficial. Risk Factors Assessment Male: No : Yes Do You Have Access To A Gun?: Yes (at parents' home) Health Problems: No Mental Health Diagnoses: Yes Substance Use Disorders: No Previous Attempt: Yes Family History of Suicide: No Previous Psychiatric Hospitalization: No Hopelessness: No Smoker: No Protective Factors Assessment : No Responsible for Young Children: No Stable Relationships: Yes Supportive Family: Yes Interval History Identifying Information GEOVANNA STACY is a 19-year-old F who currently lives in [place], [place] with her family - though attends [employer] during the semester. The patient reports a hist ory of depression and anxiety, and was admitted on 04/30/20 13:25 on a 201 voluntary commitment following suicide attempt by polysubstance overdose. Chief Complaint "I'm doing really good." Review of Systems Notes Constitutional: denied Cardiovascular: denied Respiratory: denied Gastrointestinal: denied Neurological: denied Psychiatric: denies symptoms other than stated above Total of at least 10 systems reviewed, pertinent positives as above and in HPI. Sleep Information Total Hours of Sleep: 5.5 Meal Information Percent Meal Consumed - Breakfast: 30 Percent Meal Consumed - Lunch: 100 Percent Meal Consumed - Dinner: 95 Subjective Subjective Patient was seen & assessed and interval progress reviewed with nursing and social work. Staff report the patient has been bright and interactive. She has been participating in group programming and is denying SI, but states she is benefitting from treatment. Parents were supportive during family meeting yesterday. Pt was seen today to assess progress since admission. Pt states she is "doing really good" today. She admits that her family meeting yesterday was "good, they have always been so supportive"; however, "I did get upset after the meeting. I just feel like a part of my mom doesn't get it and blames herself for my suicidality." Pt admits that while her hope is that her suicidal thoughts begin to resolve, she is also hopeful to keep open communication with her parents to help them better understand her history. Pt does state she was surprised by how supportive her father was during the meeting stating, "I don't often feel like I can talk to him, because he doesn't understand my mental health, but every time I have a conversation with him I'm glad." Pt did share some anticipatory anxiety related to returning home. She states that she often feels confined within her house as "[place]. I started self-harming when I was home over the summer because my anxiety was so high." Pt states she discussed this during her family meeting and parents were able to offer support and suggestions for this. Pt also states that she is scheduled to take a final Tuesday, and is very worried about this - as the stress of working on a final was related to development of SI and ultimately her overdose. The patient states she is worried about replaying similar events. We discussed communicating this concern to her parents, and working with them on a safety plan that would allow her to feel supported and perform as well as possible on her final. Pt was also encouraged to consider steps that will assist her with transitioning to the outpatient setting. She denies SI since admission and reports she has been benefitting greatly from treatment in the hospital. Pt denied other needs at this time. Physical Exam Psychiatric Orientation: alert, oriented x 3 and cooperative (and pleasant ) Apperance: appropriately dressed, appropriately groomed and appeared stated age Eye Contact: good eye contact Motor Behavior: steady gait and station and no abnormal motor movements Speech: normal rate/rhythm/volume of speech Affect: + anxious affect Pt is generally bright and very cheerful (sometimes incongruent with reported mood), she did display more genuine anxiety today as we discussed anticipatory concerns related to discharge and completing finals. Mood: + anxious mood (anticipatory anxiety about discharge and finishing finals); no depressed mood Thought Process: goal directed thought process and clear/coherent thought process Thought Content: reality based without delusions; no hopelessness and no worthlessness Suicidal Thoughts: denies suicidal thoughts and denies suicidal intent Homicidal Thoughts: denies homicidal thoughts Hallucinations: no auditory hallucinations and no visual hallucinations Cognition: recent memory grossly intact, attention grossly intact and language grossly intact Estimated Intelligence: consistent with education level Insight: + fair insight Judgement: + fair judgement Vital Signs (Past 24 Hours) Last Vital Signs Temp 36.8 C 05/03/20 06:40 Pulse 96 H 05/03/20 06:41 Resp 16 05/03/20 06:40 BP 104/74 05/03/20 06:41 Results & Data ([facility]) Current Inpatient Medications Current Inpatient Medications: Current Inpatient Medications Acetaminophen (Acetaminophen 325 Mg Tab) 650 mg PO Q4H PRN PRN Reason: Headache or Minor Fever Stop: 05/30/20 13:51 Last Admin: 04/30/20 20:35 Dose: 650 mg Documented by: Al Hydrox/Mg Hydrox/Simethicone (Aluminum/Magnesium Susp 30 Ml Udc) 30 ml PO Q4H PRN PRN Reason: GI Upset Stop: 05/30/20 13:51 Bismuth Subsalicylate (Bismuth Subsalicylate Liqd 236 Ml) 15 ml PO PRN PRN PRN Reason: Loose Stool Stop: 05/30/20 13:51 Hydroxyzine HCl (Hydroxyzine Hcl 25 Mg Tab) 50 mg PO HSZ PRN PRN Reason: Insomnia Stop: 05/30/20 13:51 Hydroxyzine HCl (Hydroxyzine Hcl 25 Mg Tab) 25 mg PO Q4H PRN PRN Reason: Anxiety Stop: 05/30/20 13:51 Lamotrigine (Lamotrigine 25 Mg Tab) 25 mg PO QAM FRAN Stop: 06/02/20 08:59 Magnesium Hydroxide (Magnesium Hydroxide Susp 30 Ml Udc) 30 ml PO DAILY PRN PRN Reason: Constipation Stop: 05/30/20 13:51 Previfem 0.25/0.035 Mg- Non-Formulary Patient's Own Med 1 ea N/A QAM FRAN Stop: 05/31/20 08:59 Last Admin: 05/02/20 10:01 Dose: 1 tab Documented by: Sodium Chloride (Sodium Chloride 0.65% Na Soln 45 Ml ([place])) 1 - 2 sprays NA PRN PRN PRN Reason: Nasal Dryness/Congestion Stop: 05/30/20 13:51 Venlafaxine HCl (Venlafaxine Hcl Xr 75 Mg Capxr) 75 mg PO QAM FRAN Stop: 06/02/20 08:59 Mental Health & Subst Abuse Tx Psychiatrist Name of Psychiatrist: Gareth Nevarez PA-C Psychiatrist's Date of Appointment with Psychiatrist: 06/09/19 Time of Appointment with Psychiatrist: 1:30 pm Psychiatric Appointment Comment: [address] [place] [address], (in person appt) Therapist Name of Therapist: Etienne Dhillonary Therapist's Date of Therapist Appointment: 05/06/20 Time of Therapist Appointment: 8 am Therapy Appointment Comment: Telehealth - will send you an e-mail w/ paperwork and instructions Post Discharge Appointments Primary Care Physician Name Of Family Doctor: [facility] Date of Appointment with PCP: 05/07/20 Time of Appointment with PCP: 11:05 a.m. Provider Appointment Comment: in person appt - [facility] Other #1: Name of Aftercare Appointment: [facility] - [facility] Phone Number of Aftercare Appointment: [phone] Date of Aftercare Appointment: 05/06/20 Time of Aftercare Appointment: 1:30 p.m. Aftercare Appointment Comment: Will call you Contact Information Discharge Discharge Address: [address] [place] [address] (1) Depression Depression Type: unspecified Qualified Code(s): F32.9 - Major depressive disorder, single episode, unspecified (2) Overdose Encounter type: initial encounter Injury intent: intentional self-harm Qualified Code(s): T50.902A - Poisoning by unspecified drugs, medicaments and biological substances, intentional self-harm, initial encounter
[2020-05-03] MEDS: lamoTRIgine 25 MG TAB PO SCH (09:08)
[2020-05-03] MEDS: VENLAFAXINE HCL XR 75 MG CAPXR PO SCH (09:08)
[2020-05-03] MEDS: NORGESTIMATE SCH (09:09)
[2020-05-03] MEDS: ETHINYL ESTRADIOL SCH (09:09)
--- NOTE | 2020-05-04 07:50 | Psychiatric Progress Note ---
Date of Service May 04, 2020 Impression / Recommendations Impression 19-year-old female admitted voluntarily for inpatient psychiatric treatment on 04/30/2020 after a two day medical admission for suicide attempt by intentional overdose on ~16 - 75mg venlafaxine and ~6 tablets of ibuprofen. She rpeorted two previous suicide attempts by overdose within the last 3 years. The patient reports historical diagnoses of major depressive disorder and generalized anxiety disorder; however, has contemplated whether she may have traits of bipolar disorder, as she reports rapid fluctuation in mood and more impulsive spending in in her elevated mood states, which last < 1 day. Will gather collateral information from outpatient supports to further explore this diagnosis - differential currently includes: MDD, bipolar II disorder, cyclothymic disorder, substance-induced mood disorder, and personality disorder. Venlafaxine XR 37.5mg has been resumed to prevent discontinuation syndrome. After obtaining additional information, the patinet is demonstrating difficulty regulating mood with episodes of expansive mood and even nondelusional grandiosity; however, this is not always associated with flight of ideas, decreased sleep or increased energy. She also reports a long-standing history of SIB. Although reported symptoms continue to be sub-clinical for a diagnosis of bipolar II or cyclothymic disorder, the difficulty regulating mood and poor impulse control have led to discussion of initiating lamotrigine as a mood stabilizer. Risks and benefits discussed (specifically risk of SJS and HLH), and patient agreed to the medication. Although she is appearing bright on our unit, she admits that many of these concerns have not previously been addressed and she feels she is benefitting from treatment. She remains at elevated risk of self harm if she is discharged prematurely without adequate psychiatric intervention following serious suicide attempt. (1) Overdose: 05/01 -monitored on the hospitalist service for 2 days, no QTC prolongation or other medical sequelae of overdose observed. -Continue to explore events/emotions that led up to her overdose, involve her in groups and therapy, work on healthy coping skills and discharge safety plan. -Family meeting with parents. 05/02 -The patient reports that she has not had any thoughts of suicide on the unit, nor has she had any thoughts of furtherance since her admission to the medical floor. However, which she describes as a longstanding history of suicidality that develops precipitously under stress, within the context of a lifelong difficulty regulating her mood. She has insight into this, and notes that she is generally able to "talk [herself] down," or engage in coping strategies/self soothing activities that allow the suicidal impulses to pass wit hout action. She does, however, acknowledge that she has made at least 3 suicide attempts by overdose over the years, and that this is the first attempt that actually came to medical attention. In the other 2 instances she regurgitated the pills that she had taken, monitor herself, and did not tell anyone. -Her goal is to improve mood stabilization and to reinforce the patient's coping strategies. She identifies using marijuana as one of her coping strategies, and we are educating the patient that this is not a recommended coping strategy within the context of her report of impulsive self harmful behaviors. 05/03 - Pt continues to deny SI - Continue to encourage development of safety plan and healthy coping strategies. (2) Depression: 05/01 -venlafaxine XR 37.5 mg resumed on transfer to the [facility]. Continue to gather information to clarify diagnosis, get collateral information from parents. -Patient would like to work on healthy coping skills to use in place of cannabis, as she feels she relies too much on it. -Refer for outpatient mental health treatment -has an appointment with someone on June 09 for psychiatric care, unsure who. Would also benefit from psychotherapy. 05/02 -The patient today reports that she does feel that venlafaxine extended release helps at 75 mg a day. A cyclical mood disorder, such as bipolar 2 or cyclothymic disorder has been in the differential diagnosis. However, the patient self identifies depression and anxiety as being her primary target symptoms, and although there is some evidence of nondelusional grandiosity in the past, she does not meet criteria for panfilo or hypomania, at least based on the clinical data provided. Accordingly, her dose of venlafaxine extended release has been titrated back to 75 mg daily, beginning tomorrow. -The patient's difficulty regulating mood is well-established. His mood regulation difficulties seems to be entirely, or almost entirely situation-de pendent, and the triggers for episodes of despair and severe anxiety are described by the patient as being largely related to themes of abandonment, rejection, inadequacy, or high expressed emotions. We are offering the patient a trial of lamotrigine. We will begin at 25 mg today as a test dose, and as tolerated we will continue the dose at 25 mg a day with a plan to titrate (presumably on an outpatient basis). Material risks of lamotrigine, including but not limited to the risk of Thornton-Ab syndrome were reviewed with the patient. She was advised to monitor her body for the development of any rash, and in particular to be aware of a rash that begins to spread. The patient was also advised that any rash should be promptly reported to her prescribing provider and lamotrigine should be stopped immediately if the rash appears to be prominent, spreading or otherwise worsening. The patient indicated understanding. 05/03 - Continue current medication regimen - pt is tolerating titration of venlafaxine and initiation of lamotrigine without reported side effects. - She had a meeting with her parents yesterday via phone. Family supportive, but obviously concerned about the patient's behavior. - Pt does reports significant anxiety related to discharge, as she is scheduled for a final on Tuesday - a similar situation to the events that triggered suicidality and led to overdose. Pt was given recommendations regarding ways to begin planning for this event in order to predict stressors and include coping strategies that will allow her to be as successful as possible with her exam - possibility even including supports in this plan if felt to be beneficial. Risk Factors Assessment Male: No : Yes Do You Have Access To A Gun?: Yes (at parents' home) Health Problems: No Mental Health Diagnoses: Yes Substance Use Disorders: No Previous Attempt: Yes Family History of Suicide: No Previous Psychiatric Hospitalization: No Hopelessness: No Smoker: No Protective Factors Assessment : No Responsible for Young Children: No Stable Relationships: Yes Supportive Family: Yes Interval History Identifying Information GEOVANNA STACY is a 19-year-old F who currently lives in [place], [place] with her family - though attends [employer] during the semester. The patient reports a hist ory of depression and anxiety, and was admitted on 04/30/20 13:25 on a 201 voluntary commitment following suicide attempt by polysubstance overdose. Chief Complaint "[]". Review of Systems Notes Constitutional: [denied] Cardiovascular: [denied] Respiratory: [denied] Gastrointestinal: [denied] Neurological: [denied] Psychiatric: [denies symptoms other than stated above] Total of at least 10 systems reviewed, pertinent positives as above and in HPI. Sleep Information Total Hours of Sleep: 6 Sleep Comments: pt on q-15 minute checks Meal Information Percent Meal Consumed - Breakfast: 80 Percent Meal Consumed - Lunch: 75 Percent Meal Consumed - Dinner: 80 Subjective Subjective Patient was seen & assessed and interval progress reviewed with [treatment team] [nursing and social work] Physical Exam Vital Signs (Past 24 Hours) Last Vital Signs Temp 36.7 C 05/04/20 06:49 Pulse 108 H 05/04/20 06:49 Resp 16 05/04/20 06:49 BP 110/74 05/04/20 06:49 Results & Data ([facility]) Current Inpatient Medications Current Inpatient Medications: Current Inpatient Medications Acetaminophen (Acetaminophen 325 Mg Tab) 650 mg PO Q4H PRN PRN Reason: Headache or Minor Fever Stop: 05/30/20 13:51 Last Admin: 04/30/20 20:35 Dose: 650 mg Documented by: Al Hydrox/Mg Hydrox/Simethicone (Aluminum/Magnesium Susp 30 Ml Udc) 30 ml PO Q4H PRN PRN Reason: GI Upset Stop: 05/30/20 13:51 Bismuth Subsalicylate (Bismuth Subsalicylate Liqd 236 Ml) 15 ml PO PRN PRN PRN Reason: Loose Stool Stop: 05/30/20 13:51 Hydroxyzine HCl (Hydroxyzine Hcl 25 Mg Tab) 50 mg PO HSZ PRN PRN Reason: Insomnia Stop: 05/30/20 13:51 Hydroxyzine HCl (Hydroxyzine Hcl 25 Mg Tab) 25 mg PO Q4H PRN PRN Reason: Anxiety Stop: 05/30/20 13:51 Lamotrigine (Lamotrigine 25 Mg Tab) 25 [facility] Stop: 06/02/20 08:59 Last Admin: 05/03/20 09:08 Dose: 25 mg Documented by: Magnesium Hydroxide (Magnesium Hydroxide Susp 30 Ml Udc) 30 ml PO DAILY PRN PRN Reason: Constipation Stop: 05/30/20 13:51 Previfem 0.25/0.035 Mg- Non-Formulary Patient's Own Med 1 ea N/A QAM [facility] Stop: 05/31/20 08:59 Last Admin: 05/03/20 09:09 Dose: 1 tab Documented by: Sodium Chloride (Sodium Chloride 0.65% Na Soln 45 Ml ([place])) 1 - 2 sprays NA PRN PRN PRN Reason: Nasal Dryness/Congestion Stop: 05/30/20 13:51 Venlafaxine HCl (Venlafaxine Hcl Xr 75 Mg Capxr) 75 mg PO QAM [facility] Stop: 06/02/20 08:59 Last Admin: 05/03/20 09:08 Dose: 75 mg Documented by: Mental Health & Subst Abuse Tx Psychiatrist Name of Psychiatrist: Gareth Nevarez PA-C Psychiatrist's Date of Appointment with Psychiatrist: 06/09/19 Time of Appointment with Psychiatrist: 1:30 pm Psychiatric Appointment Comment: [facility], (in person appt) Therapist Name of Therapist: Etienne Dhillonary Therapist's Date of Therapist Appointment: 05/06/20 Time of Therapist Appointment: 8 am Therapy Appointment Comment: Telehealth - will send you an e-mail w/ paperwork and instructions Post Discharge Appointments Primary Care Physician Name Of Family Doctor: [facility] Date of Appointment with PCP: 05/07/20 Time of Appointment with PCP: 11:05 a.m. Provider Appointment Comment: in person appt - [place] Other #1: Name of Aftercare Appointment: [facility] Phone Number of Aftercare Appointment: [phone] Date of Aftercare Appointment: 05/06/20 Time of Aftercare Appointment: 1:30 p.m. Aftercare Appointment Comment: Will call you Contact Information Discharge Discharge Address: [address] [place] [address] (1) Overdose Encounter type: initial encounter Injury intent: intentional self-harm Qualified Code(s): T50.902A - Poisoning by unspecified drugs, medicaments and biological substances, intentional self-harm, initial encounter (2) Depression Depression Type: unspecified Qualified Code(s): F32.9 - Major depressive disorder, single episode, unspecified
[2020-05-04] MEDS: lamoTRIgine 25 MG TAB PO SCH (08:10)
[2020-05-04] MEDS: ETHINYL ESTRADIOL SCH (08:10)
[2020-05-04] MEDS: NORGESTIMATE SCH (08:10)
[2020-05-04] MEDS: VENLAFAXINE HCL XR 75 MG CAPXR PO SCH (08:10)
--- NOTE | 2020-05-04 08:55 | Discharge Summary ---
Date of Service May 04, 2020 History of Present Illness Maureen Henriquez is a 19-year-old female admitted voluntarily for inpatient psychiatric treatment after presenting to the ED via EMS s/p suicide attempt by polysubstance overdose. The patient was hospitalized for two days on the medical floor before being cleared for the inpatient psychiatric unit. She was ultimately admitted voluntarily for treatment. The patient was seen on our consult service on 04/29/2020. Documentation indicates the patient had called police to disclose intentional ingestion of #16 - 75mg venlafaxine ER and #6 tablets of ibuprofen. In addition, she had written 4 suicide notes. 302 warrant completed by police and reads: Martinez called and claimed that she had taken prescription pills (handful). Officers arrived and found Martinez outside her apartment crying. Martinez admitted to intentionally taking the meds to OD. I located joaniee notes to her family on her bed with instructions. Martinez stated she was very serious when she took the meds in an attempt to kill herself. Martinez said she hasnt been able to speak with anyone because of COVID. Additional information from consultation included: Pt reports a history of diagnoses of major depressive disorder and generalized anxiety disorder - antidepressants were prescribed by her PCP. She states that she had an aunt with bipolar disorder and "I am my aunt reincarnated." The patient states that her mother took her to a therapist at the age of [age] "to see if I had bipolar disorder, because I was up and down all the time." She reports that for several years she had noticed "going months feeling really depressed and then months feeling, well, happier than most people probably are." The patient states that these intervals have become significantly shorter, "now changing by the hour. I can be really elevated one hour, and then want to kill myself the next." Pt does endorse episodes of excessive spending in her elevated mood states - on clothing and "really expensive concert tickets." Interestingly, the patient states that there are many times that she will feel most depressed "when I'm around my friends and we are doing stuff together, like feeling alone with my friends." Pt states "if they talk to me directly about what we are doing or how I am feeling, then my mood seems to get better." Pt does admit to recent self- harm behavior beginning in October 2019. She reports these urges began around the same time that she was started on venlafaxine, though she was able to refrain from acting on urges from November to April of this year, stating her only recent episodes have been twice in the days prior to her admission. Pt states she had reached out to the [facility] for assistance 1-2 months ago and was given information for outpatient psychiatric providers. Pt states she made an intake appointment but is not sure which office this is through. Pt feels overall that she likes the venlafaxine, and is hoping to continue this medication. We did discuss risks associated with her overdose, as well as signs and symptoms of discontinuation syndrome. Pt was seen today for psychiatric evaluation to follow-up on previous discussions and develop treatment plan. She was pleasant and cooperative with visit. Pt confirmed the above information regarding events contributing to her suicide attempt. She states "I knew my mood was not good already, and I had been working on a final that was due that night. I know like taking a walk or a shower helps, but I just thought if I took the time to do those things, I might fail my final...so I just wanted to give up on all of it." She denies SI presently. Pt is agreeable to discussing her mood fluctuations in more detail today. Pt states "it's so weird. 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 I'm like, 'I want to swim in a galvez' or 'I want to have a picnic in a field'." Pt states her elevated moods rarely last longer than a full day, but she experiences depressed moods for "anywhere from a few hours to sometimes a week." Pt reports recollection of depressed moods for the past 6 years, but states the elevated moods have been more noticeable only in the last 3 years. Pt denies history of elevated mood states that are more consistent with antidepressant medication initiation/adjustments, per recalled history. We did also discuss her chronic marijuana use and the role this may be having in her mood fluctuations. Pt is agreeable with resuming venlafaxine at 37.5mg to reduce risk of discontinuation syndrome while additional medication considerations are explored. She denies other significant concerns at this time. Physical Exam Psychiatric Orientation: alert, oriented x 3 and cooperative Apperance: appropriately dressed, appropriately groomed and appeared stated age Eye Contact: good eye contact Motor Behavior: steady gait and station and no abnormal motor movements Speech: normal rate/rhythm/volume of speech Affect: euthymic affect (energetic, cheerful) Mood: + anxious mood (reports slight anticipatory anxiety related to discharge); no depressed mood Thought Process: goal directed thought process, clear/coherent thought process and thought association intact Thought Content: reality based without delusions; no hopelessness and no worthlessness Suicidal Thoughts: denies suicidal thoughts Homicidal Thoughts: denies homicidal thoughts Hallucinations: no auditory hallucinations and no visual hallucinations Cognition: recent memory grossly intact, attention grossly intact and language grossly intact Estimated Intelligence: consistent with education level Insight: good insight Judgement: good judgement Vital Signs (Past 24 Hours) Last Vital Signs Temp 36.7 C 05/04/20 06:49 Pulse 108 H 05/04/20 06:49 Resp 16 05/04/20 06:49 BP 110/74 05/04/20 06:49 Principal Diagnosis - Major depressive disorder, recurrent, severe without psychotic features (rule out cyclothymic disorder, bipolar II disorder, substance-induced mood disorder, and/or borderline personality disorder traits). Psychiatric Data 19-year-old female admitted voluntarily for inpatient psychiatric treatment on 04/30/2020 after a two day medical admission at [facility] for suicide attempt by intentional overdose of ~16 - 75mg venlafaxine and ~6 tablets of ibuprofen. She reported two previous suicide attempts by overdose within the last 3 years. The patient reports historical diagnoses of major depressive disorder and generalized anxiety disorder; however, has contemplated whether she may have traits of bipolar disorder, as she reports rapid fluctuation in mood and more impulsive spending in in her elevated mood states, which last < 1 day per her reports. Collateral information was gathered to further explore this diagnosis - differential includes: MDD, bipolar II disorder, cyclothymic disorder, substance-induced mood disorder, and personality disorder. On admission to our unit, venlafaxine XR 37.5mg was resumed to prevent discontinuation syndrome. The patient did consistently report difficulty regulating mood with episodes of expansive mood and even nondelusional grandiosity; however, this is not always associated with flight of ideas, decreased sleep or increased energy. She also reported a long-standing history of SIB. Although reported symptoms continued to be sub-clinical for a diagnosis of bipolar II or cyclothymic disorder, the difficulty regulating mood and poor impulse control led to a discussion about initiating lamotrigine as a mood stabilizer. Risks and benefits were discussed (specifically risk of SJS and HLH), and patient agreed to the medication. She tolerated the medication adjustments well. Affect was consistently bright and cheerful, despite the serious events leading to her admission. Pt was a supportive member of the milieu, often seeking out peers to participate in activities. Pt did feel her stay was beneficial, as she admits many of her symptoms are long-standing, but had never been adequately addressed. The patient did have a family meeting with her parents, who are supportive. Pt also completed a written safety plan prior to discharge, which had been reviewed and discussed with staff. Based on review of patient's case and their current presentation, risk of harm to self or others is no longer perceived to be acute. Management of symptoms on an outpatient basis seems the most appropriate and least restrictive setting. Pt seems appropriate for discharge with recommendation for consistent follow-up with outpatient psychiatric prescriber and therapist. Pt verbalized understanding of discharge plan reviewed and is agreeable with plan to be discharged home with parents today. Day of Discharge Assessment Patient's case was reviewed and discussed during morning report with nursing and social work. Case reviewed with supervising physician in anticipation of discharge today. Pt was seen today to assess readiness for discharge. Pt stated she was feeling "good, really good." She shared some positive experiences from her stay, specifically a group on cognitive distortions. The patient did indicate that she was a bit nervous, but ultimately ready for discharge. She denied continued SI or any new safety concerns. Discharge medications and follow-up appointments were reviewed. Following the confirmation of anticipated discharge, a Zoom meeting (2-way audio/video feed) was conducted with supervising physician, Dr. Hall. Pt agreed to mode of communication. Pt shared that she felt the hospital was a "safe spot away from all of the stressors that would have got me spiraling." She reported she was happy that within a few hours of admission she was already "using a list of 20 different things I could use as coping skills, like healthy things to relieve stress." Some time was spent reviewing patient's tendency toward catastrophizing and ways to view situations through both long and short-term perspectives. Pt did share that she will be working with her professor to reschedule her final, but is feeling reassured with how open the communication has already been about this stressor. Pt did mention again her intrusive thoughts to harm herself, and did feel that she would be able to safely manage these thoughts outside of the hospital. Pt states "they don't feel like options to me when I'm in a good mood", and now is able to verbalize tools to combat the negative thinking when her mood is worse. Pt did state that she has noticed some fatigue with initiation of lamotrigine - and was encouraged to consider switching to bedtime if necessary. Pt continues to feel she has a decent support network and denies hesitancy to utilize them. Pt denies continued active SI and feels safe to manage her psychiatric symptoms in the outpatient setting. Pt denied other acute concerns and reported feeling as though she had met her treatment goals. ROS: Constitutional: reports mild fatigue, believed to be related to lamotrigine Cardiovascular: denied Respiratory: denied Gastrointestinal: denied Neurological: denied Psychiatric: denies symptoms other than stated above Total of at least 10 systems reviewed, pertinent positives as above and in HPI. Transition of Care Transition Of Care Record: was reviewed with the patient Advance Directives Advance Directives Information Provided: No Advance Directives: No Mental Health Advance Directive: No Advance Directives on File: No Living Will: No Power of Software Writer: No Advance Directives Reason:: Declines as Mental Health Visit. Risk Factors Assessment Presenting risk factors reviewed on discharge. Precipitating stressors mitigated by: admission for inpatient psychiatric observation and treatment, appropriate adjustments to medications to target symptoms, attendance of therapeutic treatment groups, development of healthy and effective coping strategies, involvement of outpatient supports, completion of a safety plan, confirmation of guns and weapons being secured, discussion regarding substance abuse and effects on mental health diagnoses, and education on diagnoses. Pt has demonstrated improvement in condition with regard to resolution of SI, development of healthy and effective coping strategies, involvement of parents in safety and discharge planning, and arrangement of aftercare services. At this time, patient is requesting discharge and is no longer considered to be at acute risk of harm to herself or others. Pt will be discharged with recommendation for ongoing outpatient psychiatric treatment. Male: No : Yes Do You Have Access To A Gun?: Yes (at parents' home) Health Problems: No Mental Health Diagnoses: Yes Substance Use Disorders: No Previous Attempt: Yes Family History of Suicide: No Previous Psychiatric Hospitalization: No Hopelessness: No Smoker: No Protective Factors Assessment : No Responsible for Young Children: No Stable Relationships: Yes Supportive Family: Yes Tobacco Cessation at Discharge Tobacco Cessation Medication Prescribed at Discharge: Not Applicable/Non-Smoker Total Time Total Time Spent: Greater Than 30 Minutes Total Time Includes: Examination of the patient, Discharge Planning, Medication Reconciliation and Communication with other providers Hospital Course (1) Overdose: 05/01 -monitored on the hospitalist service for 2 days, no QTC prolongation or other medical sequelae of overdose observed. -Continue to explore events/emotions that led up to her overdose, involve her in groups and therapy, work on healthy coping skills and discharge safety plan. -Family meeting with parents. 05/02 -The patient reports that she has not had any thoughts of suicide on the unit, nor has she had any thoughts of furtherance since her admission to the medical floor. However, which she describes as a longstanding history of suicidality that develops precipitously under stress, within the context of a lifelong difficulty regulating her mood. She has insight into this, and notes that she is generally able to "talk [herself] down," or engage in coping strategies/self soothing activities that allow the suicidal impulses to pass without action. She does, however, acknowledge that she has made at least 3 suicide attempts by overdose over the years, and that this is the first attempt that actually came to medical attention. In the other 2 instances she regurgitated the pills that she had taken, monitor herself, and did not tell anyone. -Her goal is to improve mood stabilization and to reinforce the patient's coping strategies. She identifies using marijuana as one of her coping strategies, and we are educating the patient that this is not a recommended coping strategy within the context of her report of impulsive self harmful behaviors. 05/03 - Pt continues to deny SI - Continue to encourage development of safety plan and healthy coping strategies. (2) Depression: 05/01 -venlafaxine XR 37.5 mg resumed on transfer to the [facility]. Continue to gather information to clarify diagnosis, get collateral information from parents. -Patient would like to work on healthy coping skills to use in place of cannabis, as she feels she relies too much on it. -Refer for outpatient mental health treatment -has an appointment with someone on June 09 for psychiatric care, unsure who. Would also benefit from psychotherapy. 05/02 -The patient today reports that she does feel that venlafaxine extended release helps at 75 mg a day. A cyclical mood disorder, such as bipolar 2 or cyclothymic disorder has been in the differential diagnosis. However, the patient self identifies depression and anxiety as being her primary target symptoms, and although there is some evidence of nondelusional grandiosity in the past, she does not meet criteria for panfilo or hypomania, at least based on the clinical data provided. Accordingly, her dose of venlafaxine extended release has been titrated back to 75 mg daily, beginning tomorrow. -The patient's difficulty regulating mood is well-established. His mood regulation difficulties seems to be entirely, or almost entirely situation- dependent, and the triggers for episodes of despair and severe anxiety are described by the patient as being largely related to themes of abandonment, rejection, inadequacy, or high expressed emotions. We are offering the patient a trial of lamotrigine. We will begin at 25 mg today as a test dose, and as tolerated we will continue the dose at 25 mg a day with a plan to titrate (presumably on an outpatient basis). Material risks of lamotrigine, including but not limited to the risk of Thornton-Ab syndrome were reviewed with the patient. She was advised to monitor her body for the development of any rash, and in particular to be aware of a rash that begins to spread. The patient was also advised that any rash should be promptly reported to her prescribing provider and lamotrigine should be stopped immediately if the rash appears to be prominent, spreading or otherwise worsening. The patient indicated understanding. 05/03 - Continue current medication regimen - pt is tolerating titration of venlafaxine and initiation of lamotrigine without reported side effects. - She had a meeting with her parents yesterday via phone. Family supportive, but obviously concerned about the patient's behavior. - Pt does reports significant anxiety related to discharge, as she is scheduled for a final on Tuesday - a similar situation to the events that triggered suicidality and led to overdose. Pt was given recommendations regarding ways to begin planning for this event in order to predict stressors and include coping strategies that will allow her to be as successful as possible with her exam - possibility even including supports in this plan if felt to be beneficial. Mental Health & Subst Abuse Tx Psychiatrist Name of Psychiatrist: Gareth Nevarez PA-C Psychiatrist's Date of Appointment with Psychiatrist: 06/09/19 Time of Appointment with Psychiatrist: 1:30 pm Psychiatric Appointment Comment: [facility], (in person appt) Therapist Name of Therapist: Etienne Maguire Therapist's Date of Therapist Appointment: 05/06/20 Time of Therapist Appointment: 8 am Therapy Appointment Comment: Telehealth - will send you an e-mail w/ paperwork and instructions Post Discharge Appointments Primary Care Physician Name Of Family Doctor: Fedrinand Coleman Primary [facility] Date of Appointment with PCP: 05/07/20 Time of Appointment with PCP: 11:05 a.m. Provider Appointment Comment: in person appt - [facility] Tobacco Cessation Medication Prescribed at Discharge: Not Applicable/Non-Smoker Other #1: Name of Aftercare Appointment: [facility] Phone Number of Aftercare Appointment: [phone] Date of Aftercare Appointment: 05/06/20 Time of Aftercare Appointment: 1:30 p.m. Aftercare Appointment Comment: Will call you Contact Information Discharge Discharge Address: [address] [place] [address] Discharge Plan Discharge Items Patient Disposition: Home - Self-Care Reason For Visit: MDD Discharge Diagnosis: - Depression, rule out other mood disorder Condition on Discharge: Fair Activity: Resume your previous activity Non-emergency contact: Primary Care Provider, Psychiatrist and Therapist Call non-emergency contact if: you have any medication questions and your symptoms worsen Follow-up/Referrals: Shaylee Coleman MD [Primary Care Provider] - Diet: Regular Addtl Attending Provider Instructions: SPECIAL CARE INSTRUCTIONS: 1. Follow through with your scheduled aftercare appointments. If unable to keep an appointment, please call to reschedule. 2. Take your medication only as prescribed. Medication should not be changed or stopped without the approval of your doctor. In the event of worsening symptoms or concerns about side effects, contact your doctor immediately. 3. Utilize new healthy coping skills, anger management skills, and stress management skills learned during your hospitalization. Journal feelings and process them with a support person. Identify stressors or situations that may result in relapse, deterioration or inappropriate behaviors and develop a plan to deal with those issues. 4. If your coping skills are ineffective and you are in crisis, contact your outpatient providers for direction. If unable to reach your providers, please call the [facility] CRISIS LINE AT , go to the [facility] walk-in center at [address], [place], or go to the closest Emergency Room. 5. Avoid alcohol and un-prescribed drugs. 6. You have been provided with the Mental Health Advance Directives Pamphlet for your review. AFTERCARE APPOINTMENTS: * Please call your insurance company prior to your scheduled appointment to confirm your aftercare providers are covered. Take your insurance information to your appointments. WHO TO CALL AND WHEN: Medical Emergencies: For questions or emergencies related to your hospital stay, please contact the Inpatient Behavioral Health Unit at [phone]. A crisis clinician is on-call 06/12 for the Behavioral Health Unit for emergencies At any time you feel your situation is an emergency, you may also call 911 immediately. Pending Studies at Discharge: No Stand-Alone Forms: My [facility], Smoking Cessation Medications and DC Order Prescriptions: New lamotrigine [Lamictal] 25 mg Tablet 25 mg PO UD 30 Days Qty: 30 RF: 0 Continued norgestimate-ethinyl estradiol [Previfem] 0.25-35 mg-mcg tablet 1 tab PO DAILY RF: 0 venlafaxine [Effexor XR] 75 mg Capsule,Extended Release 24hr 75 mg PO DAILY RF: 0 Discharge Orders: Discharge Order (Routine); Ordered 05/04/20 Ordered By: Sonia Soni Admission Data Admit Date/Time: 04/30/20 13:25 Attending Provider: Tricia Rodriguez Admit Provider: Tricia Rodriguez Primary Care Provider: Shaylee Coleman Other Interventions: Discharge Summary Assessment (RN) Last Done: 05/04/20 10:38 PSY Interdisciplinary Discharge Planning Last Done: 05/04/20 10:38 Coding Level of Care Code 40711 D/C day mgmt > 30 min Diagnoses Overdose T50.902A Encounter type: initial encounter Injury intent: intentional self-harm Depression F32.9 Depression Type: unspecified
== END 2020-05-04 11:00 | disposition home or self-care (01) | DRG 918 ==
LOC: 3S 13:25